=== PATIENT | female | born 1940 | race Caucasian/White ===

== ENCOUNTER 2017-09-29 18:33 | Inpatient (IN) | payer MEDICARE, BC ==
--- NOTE | 2017-09-29 19:18 | EDM.PDOC ---
ED HPI GENERAL MEDICAL PROBLEM - General Chief Complaint: Neurological Problem Stated Complaint: fall Time Seen by Provider: 09/29/17 18:59 Source of Information: Reports: Patient, Family (, son), RN Notes Reviewed History Limitations: Reports: No Limitations - History of Present Illness INITIAL COMMENTS - FREE TEXT/NARRATIVE: The patient states that she developed chills, a cough productive of clear sputum , sinus congestion with a headache, particularly involving her forehead, right eye, and right ear, this past 09/27/2017. She developed generalized weakness to the point that she was unable to walk yesterday, Tuesday, 2016, and even slid out of bed at one point, unable to get back in on her own. She told the triage nurse that she was dizzy, although when asked specifically, she denies being vertiginous or lightheaded. She suffers chronic urinary incontinence, but it has been worse since Tuesday or Tuesday of this week, 2016 or 09/27/2017. She denies dysuria, urinary urgency, and urinary frequency, however. She denies recent nausea, vomiting, constipation, or diarrhea. No recent dyspnea or palpitations. The patient was seen at the [facility] today, where a urine specimen was collected, however, the patient has not been given the results. The patient received an influenza vaccine in early July this season. The patient's PCP is Dr. Head. 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 2cups coffee a day. - Recreational Drug Use Recreational Drug Use: No ED ROS GENERAL - Review of Systems Review Of Systems: ROS reveals no pertinent complaints other than HPI. ED EXAM, GENERAL - Physical Exam Exam: See Below Exam Limited By: No Limitations General Appearance: Alert, WD/WN, No Apparent Distress Eye Exam: Bilateral Eye: Normal Inspection Ears: Normal External Exam, Normal Canal, Hearing Grossly Normal, Normal TMs Nose: Normal Inspection, Normal Mucosa, No Blood Throat/Mouth: Normal Inspection, Normal Lips, Normal Teeth, Normal Gums, Normal Oropharynx, Normal Voice, No Airway Compromise Head: Atraumatic, Normocephalic Neck: Normal Inspection, Non-Tender, Other (The patient is able to tilt her head to the left and right, forward and back, but states that she has been instructed to not turn her head to the left or right, following her cervical surgery). No: Lymphadenopathy (L), Lymphadenopathy (R) Respiratory/Chest: No Respiratory Distress, Lungs Clear, Normal Breath Sounds, No Accessory Muscle Use Cardiovascular: Normal Peripheral Pulses, Regular Rate, Rhythm, No Gallop, No JVD, No Murmur, No Rub Peripheral Pulses: 4+: Radial (L), Radial (R) GI/Abdominal: Normal Bowel Sounds, Soft, Non-Tender, No Organomegaly, No Distention, No Abnormal Bruit, No Mass (Female) Exam: Deferred Rectal (Female) Exam: Deferred Extremities: Normal Inspection, Normal Range of Motion, No Pedal Edema, Normal Capillary Refill Neurological: Alert, Oriented, Normal Cognition, Other (Generalized weakness, slightly more on the left than the right. The patient states that she has chronic left sided weakness, following her cervical surgery) Psychiatric: Normal Affect Skin Exam: Warm, Dry, Intact, Normal Color, No Rash EKG INTERPRETATION EKG Date: 09/29/17 Time: 18:55 Rhythm: NSR Rate (Beats/Min): 83 [place]: Normal P-Wave: Present QRS: Normal ST-T: Depressed (SLIGHT ST depression high lateral leads, otherwise, no ischemic changes) QT: Normal Comparison: NA - No Prior EKG Course - Vital Signs Last Recorded V/S: Last Vital Signs Temp 37.9 C 09/29/17 18:49 Pulse 87 09/29/17 18:49 Resp 20 09/29/17 18:49 BP 156/75 H 09/29/17 18:49 Pulse Ox 96 09/29/17 18:49 Orthostatic Blood Pressure [ 166/73 Standing] Orthostatic Blood Pressure [ 163/74 Sitting] Orthostatic Blood Pressure [ 158/59 Supine] - Orders/Labs/Meds Orders: Active Orders 24 hr Category Date Time Status EKG Documentation Completion [RC] STAT Care 09/29/17 19:12 Active Orthostatic Vital Signs [RC] STAT Care 09/29/17 19:11 Active Chest 1V Frontal [CR] Stat Exams 09/29/17 19:11 Taken CULTURE BLOOD [BC] Stat Lab 09/29/17 19:46 Received CULTURE BLOOD [BC] Stat Lab 09/29/17 20:20 Received Blood Culture x2 Reflex Set [OM.PC] Stat Oth 09/29/17 19:12 Ordered Labs: Laboratory Tests 09/29/17 09/29/17 09/29/17 Range/Units 18:53 19:25 20:20 WBC 6.80 (3.98-10.04) K/mm3 RBC 4.50 (3.98-5.22) M/mm3 Hgb 13.0 (11.2-15.7) gm/L Hct 40.2 (34.1-44.9) % MCV 89.3 (79.4-94.8) fl MCH 28.9 (25.6-32.2) pg MCHC 32.3 (32.2-35.5) g/dl RDW Std Deviation 48.1 H (36.4-46.3) fL Plt Count 209 (182-369) K/mm3 MPV 10.7 (9.4-12.3) fl Neutrophils % (Manual) 65 H (40-60) % Band Neutrophils % 0 (0-10) % Lymphocytes % (Manual) 30 (20-40) % Atypical Lymphs % 2 % Monocytes % (Manual) 3 (2-10) % Eosinophils % (Manual) 0 L (0.7-5.8) % Basophils % (Manual) 0 L (0.1-1.2) Platelet Estimate Adequate Plt Morphology Comment Normal Anisocytosis 1+ slight Microcytosis 1+ slight Macrocytosis 1+ slight RBC Morph Comment Abnormal Sodium 134 L (136-145) mEq/L Potassium 3.9 (3.5-5.1) mEq/L Chloride 98 (98-107) mEq/L Carbon Dioxide 25 (21-32) mEq/L Anion Gap 14.9 (5-15) BUN 14 (7-18) mg/dL Creatinine 0.7 (0.55-1.02) mg/dL Est Cr Clr Drug Dosing 49.88 mL/min Estimated GFR (MDRD) > 60 (>60) mL/min BUN/Creatinine Ratio 20.0 H (14-18) Glucose 113 (83-115) mg/dL Lactic Acid (0.4-2.0) mmol/L Calcium 8.9 (8.5-10.1) mg/dL Magnesium 1.8 (1.8-2.4) mg/dl Total Bilirubin 0.2 (0.2-1.0) mg/dL AST 38 H (15-37) U/L ALT 55 (14-59) U/L Alkaline Phosphatase 98 (46-116) U/L Troponin I < 0.017 (0.00-0.056) ng/mL Total Protein 7.9 (6.4-8.2) g/dl Albumin 3.2 L (3.4-5.0) g/dl Globulin 4.7 gm/dL Albumin/Globulin Ratio 0.7 L (1-2) TSH 3rd Generation 0.556 (0.358-3.74) uIU/mL Urine Color Yellow (Yellow) Urine Appearance Slt cloudy H (Clear) Urine pH 7.0 (5.0-8.0) Ur Specific [place] 1.025 (1.005-1.030) Urine Protein 2+ H (Negative) Urine Glucose (UA) Negative (Negative) Urine Ketones 2+ H (Negative) Urine Occult Blood 2+ H (Negative) Urine Nitrite Negative (Negative) Urine Bilirubin Negative (Negative) Urine Urobilinogen 0.2 (0.2-1.0) Ur Leukocyte Esterase Negative (Negative) Urine RBC 10-20 H (0-5) /hpf Urine WBC 0-5 (0-5) /hpf Ur Epithelial Cells 0-5 (0-5) /hpf Amorphous Sediment Moderate H (NOT SEEN) /hpf Urine Bacteria Few (FEW) /hpf Urine Mucus Moderate H (FEW) /hpf 09/29/17 Range/Units 20:20 WBC (3.98-10.04) K/mm3 RBC (3.98-5.22) M/mm3 Hgb (11.2-15.7) gm/L Hct (34.1-44.9) % MCV (79.4-94.8) fl MCH (25.6-32.2) pg MCHC (32.2-35.5) g/dl RDW Std Deviation (36.4-46.3) fL Plt Count (182-369) K/mm3 MPV (9.4-12.3) fl Neutrophils % (Manual) (40-60) % Band Neutrophils % (0-10) % Lymphocytes % (Manual) (20-40) % Atypical Lymphs % % Monocytes % (Manual) (2-10) % Eosinophils % (Manual) (0.7-5.8) % Basophils % (Manual) (0.1-1.2) Platelet Estimate Plt Morphology Comment Anisocytosis Microcytosis Macrocytosis RBC Morph Comment Sodium (136-145) mEq/L Potassium (3.5-5.1) mEq/L Chloride (98-107) mEq/L Carbon Dioxide (21-32) mEq/L Anion Gap (5-15) BUN (7-18) mg/dL Creatinine (0.55-1.02) mg/dL Est Cr Clr Drug Dosing mL/min Estimated GFR (MDRD) (>60) mL/min BUN/Creatinine Ratio (14-18) Glucose (83-115) mg/dL Lactic Acid 1.5 (0.4-2.0) mmol/L Calcium (8.5-10.1) mg/dL Magnesium (1.8-2.4) mg/dl Total Bilirubin (0.2-1.0) mg/dL AST (15-37) U/L ALT (14-59) U/L Alkaline Phosphatase (46-116) U/L Troponin I (0.00-0.056) ng/mL Total Protein (6.4-8.2) g/dl Albumin (3.4-5.0) g/dl Globulin gm/dL Albumin/Globulin Ratio (1-2) TSH 3rd Generation (0.358-3.74) uIU/mL Urine Color (Yellow) Urine Appearance (Clear) Urine pH (5.0-8.0) Ur Specific [place] (1.005-1.030) Urine Protein (Negative) Urine Glucose (UA) (Negative) Urine Ketones (Negative) Urine Occult Blood (Negative) Urine Nitrite (Negative) Urine Bilirubin (Negative) Urine Urobilinogen (0.2-1.0) Ur Leukocyte Esterase (Negative) Urine RBC (0-5) /hpf Urine WBC (0-5) /hpf Ur Epithelial Cells (0-5) /hpf Amorphous Sediment (NOT SEEN) /hpf Urine Bacteria (FEW) /hpf Urine Mucus (FEW) /hpf Meds: Medications Discontinued Medications Generic Name Dose Route Start Last Admin Trade Name Freq PRN Reason Stop Dose Admin Acetaminophen 650 mg 09/29/17 20:17 09/29/17 20:22 Tylenol PO 09/29/17 20:18 650 mg NOW ONE Administration - Re-Assessments/Exams Free Text/Narrative Re-Assessment/Exam: 09/29/17 19:38 Portable chest radiograph reviewed. Cardiac silhouette is within normal limits. No pulmonary vascular congestion. No pleural effusions. No focal infiltrate. No pneumothorax. There appears to be a large left before meals separation. Findings suspicious for bilateral rotator cuff injuries. No prior chest radiograph for comparison. Formal read per the Radiologist pending. 09/29/17 20:05 The patient is not orthostatic. Nurse Esperanza stated that a PT belt was required to hold the patient upright and prevent her from falling. 09/29/17 21:22 Test results discussed with the patient. Her and son have gone home. The patient is positive for influenza A. The remainder of her workup is unremarkable. Firstly, the patient's symptoms are at least 48 hours old, therefore Tamiflu would be of no benefit. The patient is requesting being admitted overnight due to generalized weakness, which seems reasonable to me. 09/29/17 21:[address] Eng at 21:32. He accepts the patient for admission to Med Surg. Departure - Departure Time of Disposition: 21:25 Disposition: Refer to Observation Condition: Good Clinical Impression: Influenza A, Generalized weakness - Discharge Information - My Orders Last 24 Hours: My Active Orders 09/29/17 19:11 Orthostatic Vital Signs [RC] STAT Chest 1V Frontal [CR] Stat 09/29/17 19:12 EKG Documentation Completion [RC] STAT Blood Culture x2 Reflex Set [OM.PC] Stat 09/29/17 19:46 CULTURE BLOOD [BC] Stat 09/29/17 20:20 CULTURE BLOOD [BC] Stat - Assessment/Plan Last 24 Hours: My Active Orders 09/29/17 19:11 Orthostatic Vital Signs [RC] STAT Chest 1V Frontal [CR] Stat 09/29/17 19:12 EKG Documentation Completion [RC] STAT Blood Culture x2 Reflex Set [OM.PC] Stat 09/29/17 19:46 CULTURE BLOOD [BC] Stat 09/29/17 20:20 CULTURE BLOOD [BC] Stat
[2017-09-29] MEDS ORDERED: Acetaminophen 325 MG Tab PO ONE (20:17)
[2017-09-29] MEDS ORDERED: Magnesium Sulfate/Water 2 GM in Premix Bag 1 BAG IV ONE (23:00)
[2017-09-29] MEDS ORDERED: Bisacodyl 5 MG Tab PO PRN (23:21)
[2017-09-29] MEDS ORDERED: Docusate Sodium 100 MG Cap PO PRN (23:21)
[2017-09-29] MEDS ORDERED: Temazepam 7.5 MG Cap PO PRN (23:21)
[2017-09-29] MEDS ORDERED: Ondansetron 4 MG/2 ML SDV IV PRN (23:21)
[2017-09-29] MEDS ORDERED: Albuterol/Ipratropium 3.0-0.5 MG/3 ML Neb Soln NEB PRN (23:21)
[2017-09-29] MEDS ORDERED: Ondansetron 4 MG Tab.DIS PO PRN (23:21)
[2017-09-29] MEDS ORDERED: Acetaminophen 325 MG Tab PO PRN (23:21)
[2017-09-29] MEDS ORDERED: Polyethylene Glycol 3350 Powder 17 GM Packet PO PRN (23:21)
[2017-09-29] MEDS ORDERED: Acetaminophen/HYDROcodone 325-5 MG Tab PO PRN (23:21)
[2017-09-29] MEDS ORDERED: Metoprolol Tartrate 5 MG/5 ML SDV IVPUSH PRN (23:29)
[2017-09-29] MEDS ORDERED: hydrALAZINE 20 MG/ML SDV IVPUSH PRN (23:29)
[2017-09-29] MEDS ORDERED: Sodium Chloride 0.9% 1,000 ML IV SCH (23:30)
--- NOTE | 2017-09-29 23:42 | PCM.HP ---
H&P History of Present Illness - General Date of Service: 09/29/17 Admit Problem/Dx: Admission Diagnosis/Problem Admission Diagnosis/Problem Influenza Source of Information: Patient, Old Records, Provider, RN, RN Notes Reviewed History Limitations: Reports: No Limitations - History of Present Illness Initial Comments - Free Text/Narative: Rosibel Rodriguez is a 77 yo female who presents to our ED D today with chills, sinus congestion, headache, and a productive cough of clear sputum for the past few days. She reports the headache particularly involves her forehead, right eye and right ear. Yesterday she developed generalized weakness point that she was unable to walk. She states even slowed benefit at one point and was able to get back and on her own. She does have some baseline weakness from a prior spinal cyst, however she states has been much worse the last couple of days. She does have chronic urinary incontinence however it has been worse since Tuesday or Tuesday of this week. She denies any dysuria or urgency. She does report that she has had urinating more frequently this past week as well. Denies any nausea, vomiting, constipation, diarrhea. She reports she is chronically short of breath however, she has been worse last couple of days. She denies any chest pain or palpitations. She reportedly was seen at [facility] today and the urine specimen was collected. She was not given results of this UA. She reports she was told she has a cold. She states a influence screen was never done. She does report having received influenza vaccine in July this year. In the ED a 12-lead EKG was obtained showing a normal sinus rhythm at [address] was slight [address] depression in the high lateral leads but no ischemic changes. There is no prior 12-lead for comparison. This was interpreted by the ED provider. Temp was afebrile at 37.9C. Pulse was 87. Respirations 20. Blood pressure 156/75. Pulse ox 96. Static blood pressures were obtained and standing she was 166/73, sitting 163/74, supine 158/59. Blood cultures were obtained. Labs were obtained: WBC was normal at 6.8. Hemoglobin normal at 13.0. Hematocrit normal at 40.2. She was normocytic. Was were normal at 209,000. Neutrophils were elevated 65%. There is no bandemia. Sodium was slightly low at 134. Potassium good at 3.9. Chloride 98. Carbon dioxide 25. Anion gap 15.9. BUN 14. Creatinine 0.7. EGFR greater than 60. Glucose 113. Gastric acid 1.5. Calcium 8.9. Magnesium 1.8. Total bilirubin was 0.2. Liver enzymes looked good with AST at 38, ALT at 55, alkaline phosphatase and 98. Troponin was negative at less than 0.017. Was low at 3.2. TSH was normal at 0.556. UA was negative however 2+ protein, 2+ ketones, 2+ acute blood, 10- 20 RBC, moderate amorphous sediment, and moderate urine mucus were noted. She is given 650 mg Tylenol. Portable chest x-ray was obtained and interpreted by the ED provider as cardiac silhouette within normal limits. No pulmonary vascular congestion. No pleural effusions. No focal infiltrate. No pneumothorax. Possible suspicious bilateral rotator cuff injuries. Formal radiologist read is pending. The patient was very weak and nursing was required to assist her in getting in and out of bed. She was unable stand by herself. Influenza screen was obtained and she was found to be positive for influenza A. Symptoms are greater than 48 hours old and Tamiflu was not given, as she is outside of the window. She carries a history of HLD, HTN, spinal cyst with drainage, and psoriasis. She was never a smoker. She is subsequently admitted to the medical floor. CODE STATUS is DNR/DNI. Her PCP is Dr. oliver at [facility] in [place]. Headache Pain Score (Numeric/FACES): 3 - Related Data Allergies/Adverse Reactions: Allergies Allergy/AdvReac Type Severity Reaction Status Date / Time No Known Allergies Allergy Verified 09/29/17 18:48 Home Medications: Home Meds Bisoprolol Fumarate/HCTZ [Ziac 2.5-6.25 MG] 0.5 tab PO BID 10/17/16 [History] Past Medical History HEENT History: Reports: Impaired Vision Other HEENT History: glasses Cardiovascular History: Reports: High Cholesterol, Hypertension Gastrointestinal History: Reports: None HOME HEALTH CARE RESPIRATORY THERAPIST History: Reports: Other OB/BYN History: x4 Musculoskeletal History: Reports: Other (See Below) Other Musculoskeletal History: spinal cyst with drainage Dermatologic History: Reports: Psoriasis - Past Surgical History GI Surgical History: Reports: Appendectomy Female Surgical History: Reports: Hysterectomy Social & Family History - Family History Family Medical History: Noncontributory - Tobacco Use Smoking Status *Q: Never Smoker Second Hand Smoke Exposure: No - Caffeine Use Caffeine Use: Reports: Coffee, Soda Other Caffeine Use: shares with her so 1/2 can per day of soda. 2cups coffee a day. - Recreational Drug Use Recreational Drug Use: No H&P Review of Systems - Review of Systems: Review Of Systems: See Below General: Reports: Chills, Malaise, Weakness, Fatigue, Decreased Appetite. Denies: Fever, Diaphoresis HEENT: Reports: Headaches. Denies: Ear Pain, Eye Pain, Hearing Changes, Rhinitis, Sinus Congestion, Sore Throat, Visual Changes Pulmonary: Reports: Shortness of Breath (chronically but worse now ), Cough, Sputum. Denies: Wheezing, Pleuritic Chest Pain, Hemoptysis Cardiovascular: Reports: Dyspnea on Exertion (chronically ), Edema (ocasionally in right leg - none now), Blood Pressure Problem. Denies: Chest Pain, Palpitations, Orthopnea, PND, Lightheadedness, Syncope Gastrointestinal: Reports: Decreased Appetite. Denies: Abdominal Pain, Anorexia , Black Stool, Bloody Stool, Constipation, Diarrhea, Difficulty Swallowing, Nausea, Stool Incontinence, Vomiting Genitourinary: Reports: Frequency, Incontinence. Denies: Dysuria, Burning, Pain , Urgency Musculoskeletal: Reports: Neck Pain (Chronic ). Denies: Shoulder Pain, Arm Pain , Back Pain, Hand Pain, Leg Pain, Foot Pain, Joint Pain Skin: Reports: Other (Scattered psoriasis - worse on back and legs ). Denies: Jaundice, Diaphoresis, Pruritis, Erythema, Wound Psychiatric: Reports: No Symptoms. Denies: Confusion, Depression, Mood Lability , Anxiety Neurological: Reports: Headache, Pre-Existing Deficit (left sided weakness chronically from prior spinal cyst ), Difficulty Walking, Weakness, Gait Disturbance. Denies: Confusion, Dizziness, Numbness, Paresthesia, Syncope, Tingling, Tremors, Trouble Speaking Hematologic/Lymphatic: Reports: No Symptoms Immunologic: Reports: No Symptoms Exam - Exam Exam: See Below - Vital Signs Vital Signs: Last Vital Signs Temp 100.2 F 09/29/17 18:49 Pulse 87 09/29/17 18:49 Resp 20 09/29/17 18:49 BP 156/75 H 09/29/17 18:49 Pulse Ox 96 09/29/17 18:49 Weight: 130 lb - Exam Quality Assessment: DVT Prophylaxis. No: Supplemental Oxygen General: Alert, Oriented, Cooperative. No: Mild Distress HEENT: Conjunctiva Clear, EACs Clear, EOMI, Hearing Intact, Mucosa Moist & [place] , Nares Patent, Normal Nasal Septum, Posterior Pharynx Clear, PERRLA Neck: Supple, Trachea Midline, Other (Turns head up and down. We're poorly told by neurosurgeon not to turn head left or right. ). No: JVD, Thyromegaly Lungs: Clear to Auscultation, Normal Respiratory Effort. No: Crackles, Rales, Rhonchi, Rub, Stridor, Wheezing Cardiovascular: Regular Rate, Regular Rhythm, Normal S1, Normal S2 GI/Abdominal Exam: Soft, Non-Tender, No Organomegaly, No Distention, No Abnormal Bruit, No Mass, Pelvis Stable, Abnormal Bowel Sounds (hyperactive ) (Female) Exam: Deferred Rectal (Female) Exam: Deferred Back Exam: Normal Inspection, Full Range of Motion, Other. No: CVA Tenderness ( L), CVA Tenderness (R) Extremities: Normal Inspection, Normal Range of Motion, No Pedal Edema, Normal Capillary Refill Peripheral Pulses: 2+: Radial (L), Radial (R), Posterior Tibial (L), Posterior Tibial (R), Dorsalis Pedis (L), Dorsalis Pedis (R) Skin: Warm, Dry, Intact, Other (Scattered psoriasis, worse on back and legs.) Neurological: Cranial Nerves Intact (Grossly), Other. No: Strength Equal Bilateral (Left weaker than right - this is her baseline ) Neuro Extensive - Mental Status: Alert, Oriented x3, Normal Mood/Affect, Normal Cognition, Memory Intact Neuro Extensive - Motor, Sensory, Reflexes: CN II-XII Intact (Grossly), Abnormal Gait Psychiatric: Alert, Normal Affect, Normal Mood - Patient Data Result Diagrams: 09/29/17 18:53 09/29/17 20:20 *Q Meaningful Use (ADM) - VTE *Q VTE Criteria *Q: - Stroke *Q Stroke Criteria *Q: - AMI *Q AMI Criteria *Q: - Problem List (1) Generalized weakness SNOMED Code(s): 64027499 ICD Code: R53.1 - WEAKNESS Status: Acute Priority: High Current Visit: Yes (2) Influenza A SNOMED Code(s): 869995247 ICD Code: J10.1 - FLU DUE TO OTH IDENT INFLUENZA VIRUS W OTH RESP MANIFEST Status: Acute Priority: High Current Visit: Yes (3) Headache SNOMED Code(s): 52943698 ICD Code: R51 - HEADACHE Status: Acute Priority: Medium Current Visit: Yes Qualifiers: Headache type: tension-type Headache chronicity pattern: acute headache Intractability: not intractable Qualified Code(s): G44.209 - Tension-type headache, unspecified, not intractable Problem List Initiated/Reviewed/Updated: Yes Orders Last 24hrs: Active Orders 24 hr Category Date Time Status Admission Status [Patient Status] [ADT] Routine ADT 09/29/17 22:50 Active Ambulate [RC] PER UNIT ROUTINE Care 09/29/17 23:24 Active Antiembolic Devices [RC] PER UNIT ROUTINE Care 09/29/17 23:25 Active Height and Weight [RC] DAILY Care 09/29/17 23:21 Active Intake and Output [RC] QSHIFT Care 09/29/17 23:23 Active Oxygen Therapy [RC] PRN Care 09/29/17 23:21 Active Pulse Oximetry [RC] PRN Care 09/29/17 23:24 Active RT Aerosol Therapy [RC] ASDIRECTED Care 09/29/17 23:26 Active Up With Assistance [RC] ASDIRECTED Care 09/29/17 23:21 Active VTE/DVT Education [RC] PER UNIT ROUTINE Care 09/29/17 23:21 Active Vital Signs [RC] Q4H Care 09/29/17 23:21 Active Consult to Case Management [CONS] Routine Cons 09/29/17 23:21 Active Consult to Substance Abuse Services Director [CONS] Routine Cons 09/29/17 23:21 Active Consult to Spiritual Care [CONS] Routine Cons 09/29/17 23:21 Active OT Evaluation and Treatment [CONS] Routine Cons 09/29/17 23:21 Active PT Evaluation and Treatment [CONS] Routine Cons 09/29/17 23:21 Active Heart Healthy Diet [DIET] Diet 09/29/17 Dinner Active CXR [Chest 2V] [CR] Routine Exams 09/30/17 08:00 Stop Req BASIC METABOLIC PANEL,BMP [CHEM] AM Lab 09/30/17 05:11 Ordered BASIC METABOLIC PANEL,BMP [CHEM] AM Lab 10/01/17 05:11 Ordered BASIC METABOLIC PANEL,BMP [CHEM] AM Lab 10/02/17 05:11 Ordered BASIC METABOLIC PANEL,BMP [CHEM] AM Lab 10/03/17 05:11 Ordered CBC WITH AUTO DIFF [HEME] AM Lab 09/30/17 05:11 Ordered CBC WITH AUTO DIFF [HEME] AM Lab 10/01/17 05:11 Ordered CBC WITH AUTO DIFF [HEME] AM Lab 10/02/17 05:11 Ordered CBC WITH AUTO DIFF [HEME] AM Lab 10/03/17 05:11 Ordered CRP [C-REACTIVE PROTEIN] [CHEM] AM Lab 09/30/17 05:11 Ordered CRP [C-REACTIVE PROTEIN] [CHEM] AM Lab 10/01/17 05:11 Ordered CRP [C-REACTIVE PROTEIN] [CHEM] AM Lab 10/02/17 05:11 Ordered CRP [C-REACTIVE PROTEIN] [CHEM] AM Lab 10/03/17 05:11 Ordered MAGNESIUM [CHEM] AM Lab 09/30/17 05:11 Ordered MAGNESIUM [CHEM] AM Lab 10/01/17 05:11 Ordered MAGNESIUM [CHEM] AM Lab 10/02/17 05:11 Ordered MAGNESIUM [CHEM] AM Lab 10/03/17 05:11 Ordered Acetaminophen [Tylenol] Med 09/29/17 23:21 Ordered 650 mg PO Q4H PRN Acetaminophen/HYDROcodone [[place] 325-5 MG] Med 09/29/17 23:21 Ordered 1 tab PO Q4H PRN Albuterol/Ipratropium [DuoNeb 3.0-0.5 MG/3 ML] Med 09/29/17 23:21 Ordered 3 ml NEB Q4H PRN Bisacodyl [Dulcolax] Med 09/29/17 23:21 Ordered 5 mg PO DAILY PRN Docusate Sodium [Colace] Med 09/29/17 23:21 Ordered 100 mg PO BID PRN Docusate Sodium/Sennosides [Senna Plus] Med 09/29/17 23:21 Ordered 1 tab PO BID PRN Enoxaparin [Lovenox] Med 09/30/17 09:00 Ordered 30 mg SUBCUT DAILY Magnesium Rep Pharmacy to Dose [Pharmacy to Dose - Med 09/29/17 23:29 Ordered Magnesium Replacement] 1 dose .XX ASDIRECTED PRN Metoprolol Tartrate [Lopressor] Med 09/29/17 23:29 Ordered 5 mg IVPUSH Q4H PRN Ondansetron [Zofran ODT] Med 09/29/17 23:21 Ordered 4 mg PO Q6H PRN Ondansetron [Zofran] Med 09/29/17 23:21 Ordered 4 mg IV Q6H PRN Polyethylene Glycol 3350 [MiraLAX] Med 09/29/17 23:21 Ordered 17 gm PO DAILY PRN Potassium Rep Pharmacy to Dose [Pharmacy to Dose - Med 09/29/17 23:29 Ordered Potassium Replacement] 1 dose .XX ASDIRECTED PRN Sodium Chloride 0.9% [Normal Saline] 1,000 ml Med 09/29/17 23:30 Ordered IV ASDIRECTED Temazepam [Restoril] Med 09/29/17 23:21 Ordered 7.5 mg PO BEDTIME PRN hydrALAZINE [Apresoline] Med 09/29/17 23:29 Ordered 10 mg IVPUSH Q6H PRN Antiembolic Hose [OM.PC] Per Unit Routine Oth 09/29/17 23:24 Ordered Precautions [COMM] Routine Oth 09/29/17 23:29 Ordered Resuscitation Status Routine Resus Stat 09/29/17 23:21 Ordered Medication Orders Acetaminophen (Tylenol) 650 mg PO Q4H PRN PRN Reason: Pain (Mild 1-3)/fever Hydrocodone Bitart/Acetaminophen ([place] 325-5 Mg) 1 tab PO Q4H PRN PRN Reason: Pain (moderate 4-6) Albuterol/Ipratropium (Duoneb 3.0-0.5 Mg/3 Ml) 3 ml NEB Q4H PRN PRN Reason: Shortness Of Breath/wheezing Bisacodyl (Dulcolax) 5 mg PO DAILY PRN PRN Reason: Constipation Docusate Sodium (Colace) 100 mg PO BID PRN PRN Reason: Constipation Enoxaparin Sodium (Lovenox) 30 mg SUBCUT DAILY CAROLIN Hydralazine HCl (Apresoline) 10 mg IVPUSH Q6H PRN PRN Reason: Hypertension Sodium Chloride (Normal Saline) 1,000 mls @ 75 mls/hr IV ASDIRECTED CAROLIN Stop: 09/30/17 12:49 Magnesium Sulfate (Pharmacy To Dose - Magnesium Replacement) 1 dose .XX ASDIRECTED PRN PRN Reason: RX TO WATCH MAG LEVELS Metoprolol Tartrate (Lopressor) 5 mg IVPUSH Q4H PRN PRN Reason: Tachycardia Ondansetron HCl (Zofran Odt) 4 mg PO Q6H PRN PRN Reason: nausea, able to take PO Ondansetron HCl (Zofran) 4 mg IV Q6H PRN PRN Reason: Nausea/Vomiting Polyethylene Glycol (Miralax) 17 gm PO DAILY PRN PRN Reason: Constipation Potassium Chloride (Pharmacy To Dose - Potassium Replacement) 1 dose .XX ASDIRECTED PRN PRN Reason: RX TO WATCH K LEVELS Senna/Docusate Sodium (Senna Plus) 1 tab PO BID PRN PRN Reason: Constipation Temazepam (Restoril) 7.5 mg PO BEDTIME PRN PRN Reason: Sleep Assessment/Plan Comment:: I/P Acute: Influenza -Positive for influenza A on screen -CXR negative for acute findings, pending formal radiologist read -Afebrile but chilled -Reports left sided weakness at baseline due to spinal spinal cyst and surgery, but much worse now -Unable to ambulate on own - attempted to get out of bed at home and fell; was unable to get back into bed on own -Symptoms >48 hours - outside window for Tamiflu -Supportive care -IV fluids as ordered -PT/OT -Discussed possible need for SNF rehab stay in ED -WBC 6.80 -CRP ordered -Lactic acid 1.5 -Does have productive cough - will order sputum culture -Blood cultures obtained in ED - pending -PT/OT Generalized weakness -2/2 above -See above Headache -Pain medications as needed -Improved from ER -Monitor Chronic: HLD HTN - stable 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 Head at [facility] here in [place].
--- NOTE | 2017-09-30 07:56 | PCM.PN ---
- General Info Date of Service: 09/30/17 Admission Dx/Problem (Free Text): Admission Diagnosis/Problem Admission Diagnosis/Problem Influenza Subjective Update: In to see Rosibel today. She is sitting in her chair. She reports she feels much better today. She has had a BM which she describes as slightly loose. She does still have a cough. She reports some chest pain while coughing. Overall she looks much better. She reports the weakness has improved greatly. Functional Status: Reports: Pain Controlled, Tolerating Diet, Ambulating, Urinating. Denies: New Symptoms - Review of Systems General: Reports: Weakness (improved ), Fatigue (improved ), Malaise (improved ) , Appetite HEENT: Reports: No Symptoms. Denies: Dysphasia, Eye Pain, Headaches, Post Nasal Drip, Sore Throat Pulmonary: Reports: Shortness of Breath (Improved ), Pleuritic Chest Pain (when coughing ), Cough. Denies: Sputum, Wheezing Cardiovascular: Reports: Dyspnea on Exertion (acute on chronic but improved ). Denies: Chest Pain, Palpitations, PND, Edema, Lightheadedness Gastrointestinal: Reports: No Symptoms. Denies: Abdominal Pain, Constipation, Decreased Appetite, Diarrhea, Nausea, Vomiting Genitourinary: Reports: No Symptoms. Denies: Dysuria, Frequency, Burning, Pain , Urgency Musculoskeletal: Reports: Neck Pain (Chronic ). 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 At baseline.). Denies: Cyanosis, Jaundice, Mottled, Pallor, Diaphoresis Neurological: Reports: Pre-Existing Deficit (left sided weakness ), Difficulty Walking, Gait Disturbance. Denies: Confusion, Dizziness, Headache, Numbness, Tingling, Trouble Speaking Psychiatric: Reports: No Symptoms - Patient Data Vitals - Most Recent: Last Vital Signs Temp 97.9 F 09/29/17 23:20 Pulse 72 09/29/17 23:20 Resp 22 H 09/29/17 23:20 BP 104/69 09/29/17 23:20 Pulse Ox 93 L 09/29/17 23:20 Weight - Most Recent: 132 lb 3.2 oz I&O - Last 24 Hours: Intake & Output 09/29/17 09/30/17 09/30/17 22:59 06:59 14:59 Output Total 500 Balance -500 Lab Results Last 24 Hours: Laboratory Results - last 24 hr 09/30/17 09/30/17 Range/Units 05:40 05:40 WBC 7.23 (3.98-10.04) K/mm3 RBC 4.05 (3.98-5.22) M/mm3 Hgb 12.1 (11.2-15.7) gm/L Hct 36.1 (34.1-44.9) % MCV 89.1 (79.4-94.8) fl MCH 29.9 (25.6-32.2) pg MCHC 33.5 (32.2-35.5) g/dl RDW Std Deviation 48.2 H (36.4-46.3) fL Plt Count 180 L (182-369) K/mm3 MPV 10.9 (9.4-12.3) fl Neut % (Auto) 50.2 (34.0-71.1) % Lymph % (Auto) 27.4 (19.3-51.7) % [place] % (Auto) 21.3 H (4.7-12.5) % Eos % (Auto) 0.3 L (0.7-5.8) Baso % (Auto) 0.4 (0.1-1.2) % Neut # (Auto) 3.63 (1.56-6.13) K/mm3 Lymph # (Auto) 1.98 (1.18-3.74) K/mm3 [place] # (Auto) 1.54 H (0.24-0.36) K/mm3 Eos # (Auto) 0.02 L (0.04-0.36) K/mm3 Baso # (Auto) 0.03 (0.01-0.08) K/mm3 Sodium 136 (136-145) mEq/L Potassium 3.7 (3.5-5.1) mEq/L Chloride 100 (98-107) mEq/L Carbon Dioxide 26 (21-32) mEq/L Anion Gap 13.7 (5-15) BUN 13 (7-18) mg/dL Creatinine 0.6 (0.55-1.02) mg/dL Est Cr Clr Drug Dosing 61.13 mL/min Estimated GFR (MDRD) > 60 (>60) mL/min BUN/Creatinine Ratio 21.7 H (14-18) Glucose 83 (83-115) mg/dL Calcium 8.2 L (8.5-10.1) mg/dL Magnesium 2.4 (1.8-2.4) mg/dl C-Reactive Protein 7.0 H* (<1.0) mg/dL Med Orders - Current: Current Medications Acetaminophen (Tylenol) 650 mg PO Q4H PRN PRN Reason: Pain (Mild 1-3)/fever Hydrocodone Bitart/Acetaminophen ([place] 325-5 Mg) 1 tab PO Q4H PRN PRN Reason: Pain (moderate 4-6) Albuterol/Ipratropium (Duoneb 3.0-0.5 Mg/3 Ml) 3 ml NEB Q4H PRN PRN Reason: Shortness Of Breath/wheezing Bisacodyl (Dulcolax) 5 mg PO DAILY PRN PRN Reason: Constipation Docusate Sodium (Colace) 100 mg PO BID PRN PRN Reason: Constipation Enoxaparin Sodium (Lovenox) 40 mg SUBCUT DAILY [facility] Hydralazine HCl (Apresoline) 10 mg IVPUSH Q6H PRN PRN Reason: Hypertension Sodium Chloride (Normal Saline) 1,000 mls @ 75 mls/hr IV ASDIRECTED CAROLIN Stop: 09/30/17 12:49 Last Admin: 09/30/17 00:42 Dose: 75 mls/hr Magnesium Sulfate (Pharmacy To Dose - Magnesium Replacement) 0 dose .XX ASDIRECTED PRN PRN Reason: RX TO WATCH MAG LEVELS Metoprolol Tartrate (Lopressor) 5 mg IVPUSH Q4H PRN PRN Reason: Tachycardia Non-Formulary Medication (Bisoprolol Fumarate/Hctz) 0.5 tab PO BID [facility] Ondansetron HCl (Zofran Odt) 4 mg PO Q6H PRN PRN Reason: nausea, able to take PO Ondansetron HCl (Zofran) 4 mg IV Q6H PRN PRN Reason: Nausea/Vomiting Polyethylene Glycol (Miralax) 17 gm PO DAILY PRN PRN Reason: Constipation Potassium Chloride (Pharmacy To Dose - Potassium Replacement) 1 dose .XX ASDIRECTED PRN PRN Reason: RX TO WATCH K LEVELS Senna/Docusate Sodium (Senna Plus) 1 tab PO BID PRN PRN Reason: Constipation Temazepam (Restoril) 7.5 mg PO BEDTIME PRN PRN Reason: Sleep Discontinued Medications Acetaminophen (Tylenol) 650 mg PO NOW ONE Stop: 09/29/17 20:18 Last Admin: 09/29/17 20:22 Dose: 650 mg Magnesium Sulfate 2 gm/ Premix 50 mls @ 50 mls/hr IV ONETIME ONE Stop: 09/29/17 23:59 Last Admin: 09/30/17 00:42 Dose: 50 mls/hr - Exam Quality Assessment: DVT Prophylaxis General: Alert, Oriented, Cooperative, No Acute Distress HEENT: Pupils Equal, Pupils Reactive, EOMI, Mucous Membr. Moist/[place] Neck: Supple, Trachea Midline, No JVD, No Thyromegaly Lungs: Clear to Auscultation, Normal Respiratory Effort. No: Crackles, Rales, Rhonchi, Rub, Stridor, Wheezing Cardiovascular: Regular Rate, Regular Rhythm, No Murmurs GI/Abdominal Exam: Normal Bowel Sounds, Soft, Non-Tender, No Organomegaly, No Distention, No Abnormal Bruit, No Mass, Pelvis Stable (Female) Exam: Deferred Back Exam: Full Range of Motion, Other (Scattered psoriasis) Extremities: Normal Range of Motion, Non-Tender, No Pedal Edema, Normal Capillary Refill, Other (Scattered psoriasis) Peripheral Pulses: 3+: Radial (L), Radial (R), Posterior Tibial (L), Posterior Tibial (R), Dorsalis Pedis (L), Dorsalis Pedis (R) Skin: Warm, Dry, Intact Neurological: No New Focal Deficit Psy/Mental Status: Alert, Normal Affect, Normal Mood - Problem List & Annotations (1) Generalized weakness SNOMED Code(s): 89227902 Code(s): R53.1 - WEAKNESS Status: Acute Priority: High Current Visit: Yes (2) Influenza A SNOMED Code(s): 461087248 Code(s): J10.1 - FLU DUE TO OTH IDENT INFLUENZA VIRUS W OTH RESP MANIFEST Status: Acute Priority: High Current Visit: Yes (3) Headache SNOMED Code(s): 59136520 Code(s): R51 - HEADACHE Status: Resolved Priority: Medium Current Visit : Yes Qualifiers: Headache type: tension-type Headache chronicity pattern: acute headache Intractability: not intractable Qualified Code(s): G44.209 - Tension-type headache, unspecified, not intractable - Problem List Review Problem List Initiated/Reviewed/Updated: Yes - My Orders Last 24 Hours: My Active Orders 09/29/17 23:21 Height and Weight [RC] 04 Oxygen Therapy [RC] PRN Up With Assistance [RC] BID VTE/DVT Education [RC] DAILY Vital Signs [RC] Q4HR Consult to Case Management [CONS] Routine Consult to [employer] Operator [CONS] Routine Consult to Spiritual Care [CONS] Routine OT Evaluation and Treatment [CONS] Routine PT Evaluation and Treatment [CONS] Routine Acetaminophen [Tylenol] 650 mg PO Q4H PRN Acetaminophen/HYDROcodone [[place] 325-5 MG] 1 tab PO Q4H PRN Albuterol/Ipratropium [DuoNeb 3.0-0.5 MG/3 ML] 3 ml NEB Q4H PRN Bisacodyl [Dulcolax] 5 mg PO DAILY PRN Docusate Sodium [Colace] 100 mg PO BID PRN Docusate Sodium/Sennosides [Senna Plus] 1 tab PO BID PRN Ondansetron [Zofran ODT] 4 mg PO Q6H PRN Ondansetron [Zofran] 4 mg IV Q6H PRN Polyethylene Glycol 3350 [MiraLAX] 17 gm PO DAILY PRN Temazepam [Restoril] 7.5 mg PO BEDTIME PRN Resuscitation Status Routine 09/29/17 23:23 Intake and Output [RC] 04,16 09/29/17 23:24 Ambulate [RC] 10,14,18 Antiembolic Hose [OM.PC] Per Unit Routine 09/29/17 23:25 Antiembolic Devices [RC] BID 09/29/17 23:26 RT Aerosol Therapy [RC] ASDIRECTED 09/29/17 23:29 Magnesium Rep Pharmacy to Dose [Pharmacy to Dose - Magnesium Replacement] 0 dose .XX ASDIRECTED PRN Metoprolol Tartrate [Lopressor] 5 mg IVPUSH Q4H PRN Potassium Rep Pharmacy to Dose [Pharmacy to Dose - Potassium Replacement] 1 dose .XX ASDIRECTED PRN hydrALAZINE [Apresoline] 10 mg IVPUSH Q6H PRN Precautions [COMM] Routine 09/29/17 23:30 Sodium Chloride 0.9% [Normal Saline] 1,000 ml IV ASDIRECTED 09/29/17 Dinner Heart Healthy Diet [DIET] 09/30/17 00:17 CULTURE SPUTUM + SMEAR [RM] Routine 09/30/17 05:40 CBC WITH AUTO DIFF [HEME] AM 09/30/17 09:00 Bisoprolol Fumarate/HCTZ 0.5 tab PO BID Enoxaparin [Lovenox] 40 mg SUBCUT DAILY 10/01/17 05:11 BASIC METABOLIC PANEL,BMP [CHEM] AM CBC WITH AUTO DIFF [HEME] AM CRP [C-REACTIVE PROTEIN] [CHEM] AM MAGNESIUM [CHEM] AM 10/02/17 05:11 BASIC METABOLIC PANEL,BMP [CHEM] AM CBC WITH AUTO DIFF [HEME] AM CRP [C-REACTIVE PROTEIN] [CHEM] AM MAGNESIUM [CHEM] AM 10/03/17 05:11 BASIC METABOLIC PANEL,BMP [CHEM] AM CBC WITH AUTO DIFF [HEME] AM CRP [C-REACTIVE PROTEIN] [CHEM] AM MAGNESIUM [CHEM] AM - Plan Plan:: I/P Acute: Influenza -Positive for influenza A on screen -CXR negative for acute findings -Afebrile but chilled -Reports left sided weakness at baseline due to spinal spinal cyst and surgery, but much worse now - improving -Unable to ambulate on own - attempted to get out of bed at home and fell; was unable to get back into bed on own at admission -improving -Symptoms >48 hours - outside window for Tamiflu -Supportive care -IV fluids as ordered - hold for now -PT/OT -Discussed possible need for SNF rehab stay in ED - refusing now -WBC 6.80-->7.23 -CRP 7.0 -Lactic acid 1.5 -Does have productive cough - will order sputum culture -Blood cultures obtained in ED - pending Generalized weakness, improved -2/2 above -See above Resolved Headache -Pain medications as needed -Fioricet -Improved from ER -Monitor Chronic: HLD HTN - stable 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 Head at [facility] here in [place].
--- NOTE | 2017-09-30 08:15 | CR ---
Chest: Portable view of the chest was obtained. Comparison: No prior chest x-ray. Heart size is normal. Mild tortuosity of the thoracic aorta is seen. Lungs are clear. Minimal degenerative spurring is partially visualized within the spine with slight scoliosis. Previous resection of the distal left clavicle is noted. Impression: 1. Incidental findings. Nothing acute is identified on portable chest x-ray. Diagnostic code #2
[2017-09-30] MEDS ORDERED: Ibuprofen 600 MG Tab PO PRN (08:17)
[2017-09-30] MEDS: Enoxaparin 40 MG/0.4 ML Syringe SUBCUT SCH (09:15)
[2017-09-30] MEDS: Potassium Chloride 20 MEQ Tab.ER PO SCH ×2 (09:18→14:54)
[2017-09-30] MEDS ORDERED: Potassium Chloride 20 MEQ Tab.ER PO SCH (09:30)
[2017-09-30] MEDS ORDERED: Acetaminophen/Butalbital/Caffeine 325-50-40 MG Tab PO ONE (10:55)
[2017-09-30] MEDS ORDERED: Sodium Chloride 0.9% 1,000 ML IV SCH (14:30)
[2017-09-30] MEDS: BISOPROLOL FUMARATE PO SCH (21:13)
[2017-09-30] MEDS: HCTZ PO SCH (21:13)
--- NOTE | 2017-10-01 06:50 | PCM.PN ---
- General Info Date of Service: 10/01/17 Admission Dx/Problem (Free Text): Admission Diagnosis/Problem Admission Diagnosis/Problem Influenza Subjective Update: In to see Rosibel today. She is sitting in her chair. She reports she feels much better today. She has had a BM which she describes as slightly loose. She does still have a cough. She reports some chest pain while coughing. Overall she looks much better. She reports the weakness has improved greatly. Functional Status: Reports: Pain Controlled, Tolerating Diet, Ambulating, Urinating. Denies: New Symptoms - Patient Data Vitals - Most Recent: Last Vital Signs Temp 36.9 C 10/01/17 03:40 Pulse 62 10/01/17 03:40 Resp 18 10/01/17 03:40 BP 137/71 10/01/17 03:40 Pulse Ox 98 10/01/17 03:40 Weight - Most Recent: 61.19 kg I&O - Last 24 Hours: Intake & Output 09/30/17 09/30/17 10/01/17 14:59 22:59 06:59 Intake Total 1215 700 Output Total 250 1500 Balance 965 -800 Lab Results Last 24 Hours: Laboratory Results - last 24 hr 09/30/17 09/30/17 10/01/17 Range/Units 05:40 05:40 05:52 WBC 3.87 L (3.98-10.04) K/mm3 RBC 3.84 L (3.98-5.22) M/mm3 Hgb 11.4 (11.2-15.7) gm/L Hct 34.8 (34.1-44.9) % MCV 90.6 (79.4-94.8) fl MCH 29.7 (25.6-32.2) pg MCHC 32.8 (32.2-35.5) g/dl RDW Std Deviation 48.7 H (36.4-46.3) fL Plt Count 178 L (182-369) K/mm3 MPV 10.3 (9.4-12.3) fl Neut % (Auto) 38.6 (34.0-71.1) % Lymph % (Auto) 42.4 (19.3-51.7) % [place] % (Auto) 16.3 H (4.7-12.5) % Eos % (Auto) 2.1 (0.7-5.8) Baso % (Auto) 0.3 (0.1-1.2) % Neut # (Auto) 1.50 L (1.56-6.13) K/mm3 Lymph # (Auto) 1.64 (1.18-3.74) K/mm3 [place] # (Auto) 0.63 H (0.24-0.36) K/mm3 Eos # (Auto) 0.08 (0.04-0.36) K/mm3 Baso # (Auto) 0.01 (0.01-0.08) K/mm3 Manual Slide Review Normal smear Sodium 136 (136-145) mEq/L Potassium 3.7 (3.5-5.1) mEq/L Chloride 100 (98-107) mEq/L Carbon Dioxide 26 (21-32) mEq/L Anion Gap 13.7 (5-15) BUN 13 (7-18) mg/dL Creatinine 0.6 (0.55-1.02) mg/dL Est Cr Clr Drug Dosing 61.13 mL/min Estimated GFR (MDRD) > 60 (>60) mL/min BUN/Creatinine Ratio 21.7 H (14-18) Glucose 83 (83-115) mg/dL Calcium 8.2 L (8.5-10.1) mg/dL Magnesium 2.4 (1.8-2.4) mg/dl C-Reactive Protein 7.0 H* (<1.0) mg/dL Mikey Results Last 24 Hours: Microbiology 09/30/17 16:25 Gram Stain - Preliminary Sputum - Other Sputum Culture - Final Med Orders - Current: Current Medications Acetaminophen (Tylenol) 650 mg PO Q4H PRN PRN Reason: Pain (Mild 1-3)/fever Hydrocodone Bitart/Acetaminophen ([place] 325-5 Mg) 1 tab PO Q4H PRN PRN Reason: Pain (moderate 4-6) Albuterol/Ipratropium (Duoneb 3.0-0.5 Mg/3 Ml) 3 ml NEB Q4H PRN PRN Reason: Shortness Of Breath/wheezing Bisacodyl (Dulcolax) 5 mg PO DAILY PRN PRN Reason: Constipation Docusate Sodium (Colace) 100 mg PO BID PRN PRN Reason: Constipation Enoxaparin Sodium (Lovenox) 40 mg SUBCUT DAILY [facility] Last Admin: 09/30/17 09:15 Dose: 40 mg Hydralazine HCl (Apresoline) 10 mg IVPUSH Q6H PRN PRN Reason: Hypertension Ibuprofen (Motrin) 600 mg PO Q6H PRN PRN Reason: Pain Last Admin: 09/30/17 09:19 Dose: 600 mg Magnesium Sulfate (Pharmacy To Dose - Magnesium Replacement) 0 dose .XX ASDIRECTED PRN PRN Reason: RX TO WATCH MAG LEVELS Metoprolol Tartrate (Lopressor) 5 mg IVPUSH Q4H PRN PRN Reason: Tachycardia (Bisoprolol Fumarate /Hctz 0.5 Tab)*Pt Own Med* 0.5 tab PO BID [facility] Last Admin: 09/30/17 21:13 Dose: 0.5 tab Ondansetron HCl (Zofran Odt) 4 mg PO Q6H PRN PRN Reason: nausea, able to take PO Ondansetron HCl (Zofran) 4 mg IV Q6H PRN PRN Reason: Nausea/Vomiting Polyethylene Glycol (Miralax) 17 gm PO DAILY PRN PRN Reason: Constipation Potassium Chloride (Pharmacy To Dose - Potassium Replacement) 1 dose .XX ASDIRECTED PRN PRN Reason: RX TO WATCH K LEVELS Senna/Docusate Sodium (Senna Plus) 1 tab PO BID PRN PRN Reason: Constipation Temazepam (Restoril) 7.5 mg PO BEDTIME PRN PRN Reason: Sleep Discontinued Medications Acetaminophen (Tylenol) 650 mg PO NOW ONE Stop: 09/29/17 20:18 Last Admin: 09/29/17 20:22 Dose: 650 mg Acetaminophen/Butalbital/Caffeine (Fioricet 325-50-40 Mg) 1 tab PO ONETIME ONE Stop: 09/30/17 10:56 Last Admin: 09/30/17 11:50 Dose: 1 tab Sodium Chloride (Normal Saline) 1,000 mls @ 75 mls/hr IV ASDIRECTED [facility] Stop: 09/30/17 12:49 Last Admin: 09/30/17 00:42 Dose: 75 mls/hr Magnesium Sulfate 2 gm/ Premix 50 mls @ 50 mls/hr IV ONETIME ONE Stop: 09/29/17 23:59 Last Admin: 09/30/17 00:42 Dose: 50 mls/hr Sodium Chloride (Normal Saline) 1,000 mls @ 75 mls/hr IV ASDIRECTED [facility]OLIN Stop: 10/01/17 03:49 Last Admin: 09/30/17 14:55 Dose: 75 mls/hr Potassium Chloride (Klor-Con M20) 20 meq PO Q4H [facility] Stop: 09/30/17 13:31 Potassium Chloride (Klor-Con M20) 40 meq PO Q4H [facility] Stop: 09/30/17 13:31 Last Admin: 09/30/17 14:54 Dose: 40 meq - My Orders Last 24 Hours: My Active Orders 09/30/17 20:10 CULTURE SPUTUM + SMEAR [RM] Routine - Plan Plan:: I/P Acute: Influenza -Positive for influenza A on screen -CXR negative for acute findings -Afebrile but chilled -Reports left sided weakness at baseline due to spinal spinal cyst and surgery, but much worse now - improving -Unable to ambulate on own - attempted to get out of bed at home and fell; was unable to get back into bed on own at admission -improving -Symptoms >48 hours - outside window for Tamiflu -Supportive care -IV fluids as ordered - hold for now -PT/OT -Discussed possible need for SNF rehab stay in ED - refusing now -WBC 6.80-->7.23 -CRP 7.0 -Lactic acid 1.5 -Does have productive cough - will order sputum culture -Blood cultures obtained in ED - pending Generalized weakness, improved -2/2 above -See above Resolved Headache -Pain medications as needed -Fioricet -Improved from ER -Monitor Chronic: HLD HTN - stable 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 Head at [facility] here in [place].
[2017-10-01] MEDS: HCTZ PO SCH (08:38)
[2017-10-01] MEDS: Enoxaparin 40 MG/0.4 ML Syringe SUBCUT SCH (08:38)
[2017-10-01] MEDS: BISOPROLOL FUMARATE PO SCH (08:38)
[2017-10-01] MEDS ORDERED: Magnesium Oxide 400 MG Tab PO SCH (09:30)
[2017-10-01] MEDS ORDERED: Magnesium Sulfate (4.06 MEQ/ML) 1 GM/2 ML SDV IV ONE (11:39)
--- NOTE | 2017-10-01 12:02 | PCM.DCSUM1 ---
Discharge Summary - Hospital Course Brief History: Rosibel Rodriguez is a 77 yo female who presents to our ED D today with chills, sinus congestion, headache, and a productive cough of clear sputum for the past few days. She was admitted for medical management of viral illness from influenza A. - Discharge Data Discharge Date: 10/01/17 Discharge Disposition: Home, Self-Care 01 Condition: Good - Discharge Diagnosis/Problem(s) (1) Influenza A SNOMED Code(s): 379423596 ICD Code: J10.1 - FLU DUE TO OTH IDENT INFLUENZA VIRUS W OTH RESP MANIFEST Status: Acute Priority: High (2) Generalized weakness SNOMED Code(s): 83614647 ICD Code: R53.1 - WEAKNESS Status: Resolved Priority: High (3) Headache SNOMED Code(s): 11078812 ICD Code: R51 - HEADACHE Status: Resolved Priority: Medium Qualifiers: Headache type: tension-type Headache chronicity pattern: acute headache Intractability: not intractable Qualified Code(s): G44.209 - Tension-type headache, unspecified, not intractable - Patient Summary/Data Operative Procedure(s) Performed: None Complications: None Consults: Consultations 09/29/17 23:21 Consult to Case Management [CONS] Routine Consult to Water Commissioner [CONS] Routine Consult to Spiritual Care [CONS] Routine OT Evaluation and Treatment [CONS] Routine PT Evaluation and Treatment [CONS] Routine Labs Pending at D/C: None Recommended Follow-up Testing/Procedures: None Planned Operative Procedure(s) after DC: None Hospital Course: Patient was primarily admitted for medical management of acute viral illness 2/ 2 Influenza. She was found positive for influenza A but received no antiviral treatment. Patient was outside the window for treatment. However she was provided supportive care and appropriate medical treatment to improve her functional status. Her generalized weakness considerably improved as she slowly recovered from her viral illness. Her hospital course was uncomplicated and the rest of her chronic medical illness remained stable during this admission. Patient was clinically stable upon discharge. She was advised to drink and eat adequately. She was further advised to come back or seek immediate care should her symptoms persist or get worse. The patient expressed understanding and in agreement with the plans as discussed above. All questions were answered. - Patient Instructions Diet: Usual Diet as Tolerated Activity: As Tolerated Driving: Do Not Drive Showering/Bathing: May Shower Notify Provider of: Fever, Increased Pain, Nausea and/or Vomiting Other/Special Instructions: - Please continue all home medications. - Makes sure you drink and eat adequately. - Follow up with you PCP in 1 week. - Call your family doctor for questions or concerns after discharge - Discharge Plan Home Medications: Home Meds Bisoprolol Fumarate/HCTZ [Ziac 2.5-6.25 MG] 0.5 tab PO BID 10/17/16 [History] Patient Handouts: Near-Syncope, Influenza, Adult, [id number] Referrals: Rao Head MD [Primary Care Provider] - (Please call and schedule a post-hospital follow-up appointment with your primary care doctor, Dr. Head, within 1 week. ) - Discharge Summary/Plan Comment DC Time >30 min.: Yes (45 mins) Discharge Summary/Plan Comment: Discharge to Home - General Info Date of Service: 10/01/17 Admission Dx/Problem (Free Text: Influenza Subjective Update: Follow Up Functional Status: Reports: Pain Controlled, Tolerating Diet, Ambulating, Urinating. Denies: New Symptoms - Review of Systems General: Denies: Fever, Weakness, Fatigue, Malaise, Chills HEENT: Reports: No Symptoms. Denies: Headaches Pulmonary: Denies: Shortness of Breath Cardiovascular: Denies: Chest Pain Gastrointestinal: Denies: Abdominal Pain, Nausea, Vomiting Genitourinary: Reports: No Symptoms Musculoskeletal: Reports: No Symptoms Skin: Reports: Other (psoriatic rash at her back) Neurological: Reports: Gait Disturbance. Denies: Confusion, Difficulty Walking , Weakness Psychiatric: Denies: No Symptoms, Depression, Anxiety, Hallucinations Systems Review Comment: No significant overnight or acute issues. She feels pretty good. She has no complaints and wants to go home. She is able to up on her own without assistance. - Patient Data Vitals - Most Recent: Last Vital Signs Temp 36.8 C 10/01/17 08:36 Pulse 83 10/01/17 08:36 Resp 20 10/01/17 08:36 BP 146/62 H 10/01/17 08:36 Pulse Ox 97 10/01/17 08:36 Weight - Most Recent: 61.19 kg I&O - Last 24 hours: Intake & Output 09/30/17 10/01/1717 22:59 06:59 14:59 Intake Total 1215 700 180 Output Total 250 1500 Balance 965 -800 180 Lab Results - Last 24 hrs: Laboratory Results - last 24 hr 10/01/17 10/01/17 Range/Units 05:52 05:52 WBC 3.87 L (3.98-10.04) K/mm3 RBC 3.84 L (3.98-5.22) M/mm3 Hgb 11.4 (11.2-15.7) gm/L Hct 34.8 (34.1-44.9) % MCV 90.6 (79.4-94.8) fl MCH 29.7 (25.6-32.2) pg MCHC 32.8 (32.2-35.5) g/dl RDW Std Deviation 48.7 H (36.4-46.3) fL Plt Count 178 L (182-369) K/mm3 MPV 10.3 (9.4-12.3) fl Neut % (Auto) 38.6 (34.0-71.1) % Lymph % (Auto) 42.4 (19.3-51.7) % Story % (Auto) 16.3 H (4.7-12.5) % Eos % (Auto) 2.1 (0.7-5.8) Baso % (Auto) 0.3 (0.1-1.2) % Neut # (Auto) 1.50 L (1.56-6.13) K/mm3 Lymph # (Auto) 1.64 (1.18-3.74) K/mm3 [place] # (Auto) 0.63 H (0.24-0.36) K/mm3 Eos # (Auto) 0.08 (0.04-0.36) K/mm3 Baso # (Auto) 0.01 (0.01-0.08) K/mm3 Manual Slide Review Abnormal smear Sodium 141 (136-145) mEq/L Potassium 4.6 (3.5-5.1) mEq/L Chloride 108 H (98-107) mEq/L Carbon Dioxide 26 (21-32) mEq/L Anion Gap 11.6 (5-15) BUN 13 (7-18) mg/dL Creatinine 0.6 (0.55-1.02) mg/dL Est Cr Clr Drug Dosing 61.13 mL/min Estimated GFR (MDRD) > 60 (>60) mL/min BUN/Creatinine Ratio 21.7 H (14-18) Glucose 90 (83-115) mg/dL Calcium 8.2 L (8.5-10.1) mg/dL Magnesium 1.8 (1.8-2.4) mg/dl C-Reactive Protein 4.6 H* (<1.0) mg/dL LAYO Results - Last 24 hrs: Microbiology 09/30/17 16:25 Gram Stain - Preliminary Sputum - Other Sputum Culture - Final Med Orders - Current: Current Medications Acetaminophen (Tylenol) 650 mg PO Q4H PRN PRN Reason: Pain (Mild 1-3)/fever Hydrocodone Bitart/Acetaminophen ([place] 325-5 Mg) 1 tab PO Q4H PRN PRN Reason: Pain (moderate 4-6) Albuterol/Ipratropium (Duoneb 3.0-0.5 Mg/3 Ml) 3 ml NEB Q4H PRN PRN Reason: Shortness Of Breath/wheezing Bisacodyl (Dulcolax) 5 mg PO DAILY PRN PRN Reason: Constipation Docusate Sodium (Colace) 100 mg PO BID PRN PRN Reason: Constipation Enoxaparin Sodium (Lovenox) 40 mg SUBCUT DAILY [facility] Last Admin: 10/01/17 08:38 Dose: 40 mg Hydralazine HCl (Apresoline) 10 mg IVPUSH Q6H PRN PRN Reason: Hypertension Magnesium Sulfate/Dextrose 1 (gm/ Premix) 100 mls @ 100 mls/hr IV ONETIME ONE Stop: 10/01/17 12:59 Ibuprofen (Motrin) 600 mg PO Q6H PRN PRN Reason: Pain Last Admin: 09/30/17 09:19 Dose: 600 mg Magnesium Sulfate (Pharmacy To Dose - Magnesium Replacement) 0 dose .XX ASDIRECTED PRN PRN Reason: RX TO WATCH MAG LEVELS Metoprolol Tartrate (Lopressor) 5 mg IVPUSH Q4H PRN PRN Reason: Tachycardia (Bisoprolol Fumarate /Hctz 0.5 Tab)*Pt Own Med* 0.5 tab PO BID [facility] Last Admin: 10/01/17 08:38 Dose: 0.5 tab Ondansetron HCl (Zofran Odt) 4 mg PO Q6H PRN PRN Reason: nausea, able to take PO Ondansetron HCl (Zofran) 4 mg IV Q6H PRN PRN Reason: Nausea/Vomiting Polyethylene Glycol (Miralax) 17 gm PO DAILY PRN PRN Reason: Constipation Potassium Chloride (Pharmacy To Dose - Potassium Replacement) 1 dose .XX ASDIRECTED PRN PRN Reason: RX TO WATCH K LEVELS Senna/Docusate Sodium (Senna Plus) 1 tab PO BID PRN PRN Reason: Constipation Temazepam (Restoril) 7.5 mg PO BEDTIME PRN PRN Reason: Sleep Discontinued Medications Acetaminophen (Tylenol) 650 mg PO NOW ONE Stop: 09/29/17 20:18 Last Admin: 09/29/17 20:22 Dose: 650 mg Acetaminophen/Butalbital/Caffeine (Fioricet 325-50-40 Mg) 1 tab PO ONETIME ONE Stop: 09/30/17 10:56 Last Admin: 09/30/17 11:50 Dose: 1 tab Sodium Chloride (Normal Saline) 1,000 mls @ 75 mls/hr IV ASDIRECTED [facility] Stop: 09/30/17 12:49 Last Admin: 09/30/17 00:42 Dose: 75 mls/hr Magnesium Sulfate 2 gm/ Premix 50 mls @ 50 mls/hr IV ONETIME ONE Stop: 09/29/17 23:59 Last Admin: 09/30/17 00:42 Dose: 50 mls/hr Sodium Chloride (Normal Saline) 1,000 mls @ 75 mls/hr IV ASDIRECTED [facility] Stop: 10/01/17 03:49 Last Admin: 09/30/17 14:55 Dose: 75 mls/hr Magnesium Oxide (Magnesium Oxide) 400 mg PO TID [facility] Stop: 10/01/17 21:01 Magnesium Sulfate (Magnesium Sulfate 50%) 1 gm IV ONETIME ONE Stop: 10/01/17 11:40 Potassium Chloride (Klor-Con M20) 20 meq PO Q4H [facility] Stop: 09/30/17 13:31 Potassium Chloride (Klor-Con M20) 40 meq PO Q4H [facility] Stop: 09/30/17 13:31 Last Admin: 09/30/17 14:54 Dose: 40 meq - Exam General: Reports: Alert, Oriented, Cooperative, No Acute Distress HEENT: Reports: Pupils Equal, Pupils Reactive, EOMI, Mucous Membr. Moist/[place] Neck: Reports: Supple, Trachea Midline, No JVD, No Thyromegaly Lungs: Reports: Normal Respiratory Effort, Decreased Breath Sounds Cardiovascular: Reports: Regular Rate, Regular Rhythm GI/Abdominal Exam: Normal Bowel Sounds, Soft, Non-Tender, No Organomegaly, No Distention, No Abnormal Bruit, No Mass (Female) Exam: Deferred Rectal (Female) Exam: Deferred Back Exam: Reports: Normal Inspection, Decreased Range of Motion, Other ( psoriatic rash) Extremities: Normal Inspection, Normal Range of Motion, Non-Tender, No Pedal Edema, Normal Capillary Refill Skin: Reports: Warm, Dry, Intact Neurological: Reports: No New Focal Deficit. Denies: Normal Gait Psy/Mental Status: Reports: Alert, Normal Affect, Normal Mood *Q Meaningful Use (DIS) - VTE *Q VTE Criteria *Q: - Stroke *Q Stroke Criteria *Q: - AMI *Q AMI Criteria *Q:
[2017-10-01 12:45] VITALS: BP 108/53
--- NOTE | 2017-10-02 10:11 | CR ---
Chest: Two views of the chest were obtained. Comparison: Prior chest x-ray of 09/29/17. Heart size is normal. Mild tortuosity of the thoracic aorta is seen. Small nodule is identified within the right lung base. This is stable from prior chest x-ray and is felt to be incidental. No acute pulmonary densities are seen. Scoliosis and degenerative change are seen within the spine. Impression: 1. Incidental findings. Nothing acute is identified. Diagnostic code #2 I agree with preliminary report issued by [facility] ([facility] report finalized on 10/01/17, 10:36 AM Central Time)
== END 2017-10-01 14:22 | disposition home or self-care (01) | DRG 195 ==
LOC: JD.ED 18:33 → JD.MS 21:56 → UNDOADMIN 21:56 → JD.MS 22:57 → UNDODISIN 10-01 14:22
PROVIDERS: ADMIT Internal Medicine; ATTEND Internal Medicine
DX: J10.1 Influenza due to other identified influenza virus with other respiratory manifestations (principal); G44.209 Tension-type headache, unspecified, not intractable; I10 Essential (primary) hypertension; Z66 Do not resuscitate; N39.498 Other specified urinary incontinence; R53.1 Weakness; W06.XXXA Fall from bed, initial encounter; R05 Cough; Y92.003 Bedroom of unspecified non-institutional (private) residence as the place of occurrence of the external cause; E78.00 Pure hypercholesterolemia, unspecified; H54.7 Unspecified visual loss; L40.9 Psoriasis, unspecified; G96.19 Other disorders of meninges, not elsewhere classified; R26.2 Difficulty in walking, not elsewhere classified
CPT/HCPCS: 36415; 71010; 80053; 81001; 83605; 83735; 84443; 84484; 85025; 87040 ×2; 87804 ×2; 93005; 99285; A9270; P9612; 71020; 71020-26; 80048; 86140; 87070; 87205; 93010; 97110-GO; 97116-GP; 97162-GP; 97166-GO; 97530-GO; 99283-25; J1650; J3475; J7040

== ENCOUNTER 2020-03-06 12:41 | Emergency (ER) | payer MEDICARE, BC ==
[2020-03-06 13:24] VITALS: BP 190/84; PULSE 67
[2020-03-06] MEDS ORDERED: Sodium Chloride 0.9% 10 ML Syringe FLUSH PRN (14:11)
[2020-03-06] MEDS ORDERED: HYDROmorphone 0.5 MG/0.5 ML Syringe IVPUSH ONE (14:11)
--- NOTE | 2020-03-06 14:19 | EDM.PDOC ---
ED HPI GENERAL MEDICAL PROBLEM - General Chief Complaint: General Stated Complaint: LT HIP AND WRIST INJURY Time Seen by Provider: 03/06/20 13:56 Source of Information: Reports: Patient History Limitations: Reports: No Limitations - History of Present Illness INITIAL COMMENTS - FREE TEXT/NARRATIVE: Patient is a 79-year-old female who presents to the emergency department with complaints of neck, left arm, and left hip pain after falling at home. She states that she was reaching out to grab a chair to sit down and ended up falling onto her left side. She is unsure the exact mechanism, however states the chair did have wheels that she thinks it may have rolled away. She also states that her "balance is bad" and she has fallen on a number of occasions due to this. She uses a cane at home and does have a walker that she can use as needed. She has a history of cervical spine surgery and is concerned that she may have damaged her neck. She does have tenderness throughout her neck. She also states she hit her head, however she did not lose consciousness. She is not on any blood thinners. She has pain from her shoulder all the way down her left arm. Any movement causes the pain to worsen. She cannot localize one particular area of the arm that hurts more than the rest. She also complains of pain to her left hip. She has been able to bear weight and walk on the extremity since the fall; however, states it is painful. 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: Reports: Other (see below) Other 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: none Left Hip Pain Score (Numeric/FACES): 10 Left Arm Pain Score (Numeric/FACES): 10 - Related Data Allergies Allergy/AdvReac Type Severity Reaction Status Date / Time No Known Allergies Allergy Verified 09/29/17 18:48 Home Meds: Home Meds Bisoprolol/Hydrochlorothiazide [Ziac 2.5-6.25 MG] 2.5 - 6.25 mg PO BID 10/17/16 [History] atorvaSTATin [Lipitor] 10 mg PO DAILY 03/06/20 [History] Past Medical History HEENT History: Reports: Impaired Vision Other HEENT History: glasses Cardiovascular History: Reports: High Cholesterol, Hypertension Gastrointestinal History: Reports: None Genitourinary History: Reports: Urinary Incontinence 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 2cups coffee a day. - Recreational Drug Use Recreational Drug Use: No ED ROS GENERAL - Review of Systems Review Of Systems: Comprehensive ROS is negative, except as noted in HPI. ED EXAM, GENERAL - Physical Exam Exam: See Below Exam Limited By: No Limitations General Appearance: Alert, WD/WN, No Apparent Distress Head: Atraumatic, Normocephalic Neck: Normal Inspection, Supple, Tender Lateral, Tender Midline Respiratory/Chest: No Respiratory Distress, Lungs Clear, Normal Breath Sounds, No Accessory Muscle Use, Chest Non-Tender Cardiovascular: Normal Peripheral Pulses, Regular Rate, Rhythm, No Edema, No Gallop, No JVD, No Murmur, No Rub Extremities: Other (Tenderness to palpation throughout the left arm. Worse over the area of the upper humerus. No obvious deformity. Mild tenderness to posterior palpation of the left hip. She does have full range of motion of this joint.) Neurological: Alert, Oriented, CN II-XII Intact, Normal Cognition, Normal Gait, Normal Reflexes, No Motor/Sensory Deficits Psychiatric: Normal Affect, Normal Mood Skin Exam: Warm, Dry, Intact, Normal Color, No Rash Course - Vital Signs Last Recorded V/S: Last Vital Signs Temp 98.1 F 03/06/20 13:20 Pulse 67 03/06/20 13:20 Resp 20 03/06/20 13:20 BP 190/84 H 03/06/20 13:20 Pulse Ox 98 03/06/20 13:20 - Orders/Labs/Meds Orders: Active Orders 24 hr Category Date Time Status Peripheral IV Care [RC] . DIRECTED Care 03/06/20 14:11 Active UA W/MICROSCOPIC [URIN] Stat Lab 03/06/20 15:44 Results Sodium Chloride 0.9% [Saline Flush] Med 03/06/20 14:11 Active 10 ml FLUSH ASDIRECTED PRN Peripheral IV Insertion Adult [OM.PC] Stat Oth 03/06/20 14:10 Ordered Medication Orders Sodium Chloride (Saline Flush) 10 ml FLUSH ASDIRECTED PRN PRN Reason: Keep Vein Open Last Admin: 03/06/20 14:27 Dose: 10 ml Labs: Laboratory Tests 03/06/20 03/06/20 03/06/20 Range/Units 15:32 15:32 15:44 WBC 9.98 (3.98-10.04) K/mm3 RBC 4.23 (3.98-5.22) M/mm3 Hgb 12.7 (11.2-15.7) gm/dl Hct 39.5 (34.1-44.9) % MCV 93.4 (79.4-94.8) fl MCH 30.0 (25.6-32.2) pg MCHC 32.2 (32.2-35.5) g/dl RDW Std Deviation 49.3 H (36.4-46.3) fL Plt Count 214 (182-369) K/mm3 MPV 11.0 (9.4-12.3) fl Neut % (Auto) 68.9 (34.0-71.1) % Lymph % (Auto) 20.0 (19.3-51.7) % [place] % (Auto) 7.4 (4.7-12.5) % Eos % (Auto) 3.0 (0.7-5.8) Baso % (Auto) 0.3 (0.1-1.2) % Neut # (Auto) 6.87 H (1.56-6.13) K/mm3 Lymph # (Auto) 2.00 (1.18-3.74) K/mm3 [place] # (Auto) 0.74 H (0.24-0.36) K/mm3 Eos # (Auto) 0.30 (0.04-0.36) K/mm3 Baso # (Auto) 0.03 (0.01-0.08) K/mm3 Sodium 139 (136-145) mEq/L Potassium 3.8 (3.5-5.1) mEq/L Chloride 104 (98-107) mEq/L Carbon Dioxide 29 (21-32) mEq/L Anion Gap 9.8 (5-15) BUN 21 H (7-18) mg/dL Creatinine 0.8 (0.55-1.02) mg/dL Est Cr Clr Drug Dosing 44.44 mL/min Estimated GFR (MDRD) > 60 (>60) mL/min BUN/Creatinine Ratio 26.3 H (14-18) Glucose 91 (83-115) mg/dL Calcium 8.8 (8.5-10.1) mg/dL Total Bilirubin 0.3 (0.2-1.0) mg/dL AST 25 (15-37) U/L ALT 31 (14-59) U/L Alkaline Phosphatase 74 (46-116) U/L Total Protein 8.4 H (6.4-8.2) g/dl Albumin 3.2 L (3.4-5.0) g/dl Globulin 5.2 gm/dL Albumin/Globulin Ratio 0.6 L (1-2) Urine Color Yellow (Yellow) Urine Appearance Clear (Clear) Urine pH 7.0 (5.0-8.0) Ur Specific [place] > or = 1.030 (1.005-1.030) Urine Protein Negative (Negative) Urine Glucose (UA) Negative (Negative) Urine Ketones 1+ H (Negative) Urine Occult Blood Trace-intact H (Negative) Urine Nitrite Negative (Negative) Urine Bilirubin Negative (Negative) Urine Urobilinogen 0.2 (0.2-1.0) Ur Leukocyte Esterase Negative (Negative) Meds: Medications Generic Name Dose Route Start Last Admin Trade Name Freq PRN Reason Stop Dose Admin Sodium Chloride 10 ml 03/06/20 14:11 03/06/20 14:27 Saline Flush FLUSH 10 ml ASDIRECTED PRN Administration Keep Vein Open Discontinued Medications Generic Name Dose Route Start Last Admin Trade Name Freq PRN Reason Stop Dose Admin Hydromorphone HCl 0.25 mg 03/06/20 14:11 03/06/20 14:27 Dilaudid IVPUSH 03/06/20 14:12 0.25 mg ONETIME ONE Administration - Re-Assessments/Exams Free Text/Narrative Re-Assessment/Exam: 03/06/20 16:17 Xays were completed of the entire left arm, and left hip. There were no acute abnormalities present. CT scan of the head and neck were also negative for any acute abnormalities. Her lab work was found to be normal. She does not have a urinary tract infection and her electrolytes are normal. Patient has been able to get up and walk on her leg. She states that it hurts "a little bit "but that her "legs are fine ". The majority of her pain is in her left arm. We will provide her with a sling to use for comfort. Recommend that she use Tylenol or ibuprofen as needed for pain. Discussed with her that if her arm pain is not improving by early next week, she should follow-up with her primary care provider just discussed the possibility of an MRI of her shoulder. She is in agreement with this plan. Discharge instructions as documented. Departure - Departure Time of Disposition: 16:18 Disposition: Home, Self-Care 01 Condition: Good Clinical Impression: Left arm pain, Hip pain, Neck pain - Discharge Information *PRESCRIPTION DRUG MONITORING PROGRAM REVIEWED*: No *COPY OF PRESCRIPTION DRUG MONITORING REPORT IN PATIENT JEFRY: No Referrals: Rao Head MD [Primary Care Provider] - Forms: ED Department Discharge Additional Instructions: You were seen in the emergency department today for pain to your neck, left arm , and hip after a fall at home. X-rays and CTs were completed of all these areas and found to be normal. There are no fractures to be found. It is likely that you have bruised your left arm and this is causing your pain. You have been provided with a sling to use for comfort. It is important that you take your arm out of the sling a couple times a day and perform range of motion exercises to prevent frozen shoulder. You may use [id number] Tylenol or ibuprofen as needed for pain. You may also ice over the area of pain for 20 minutes every couple hours. Recommend that you use your cane or walker at all times at home. If the pain to your arm does not improve by early next week, I would recommend that you follow-up with your primary care provider. Return to the ER as needed. Sepsis Event Note - Evaluation Sepsis Screening Result: No Definite Risk - Focused Exam Vital Signs: Vital Signs Temp Pulse Resp BP Pulse Ox 03/06/20 13:20 98.1 F 67 20 190/84 H 98 Date Exam was Performed: 03/06/20 Time Exam was Performed: 16:14 - My Orders Last 24 Hours: My Active Orders 03/06/20 14:10 Peripheral IV Insertion Adult [OM.PC] Stat 03/06/20 14:11 Peripheral IV Care [RC] . DIRECTED Sodium Chloride 0.9% [Saline Flush] 10 ml FLUSH ASDIRECTED PRN 03/06/20 15:44 UA W/MICROSCOPIC [URIN] Stat - Assessment/Plan Last 24 Hours: My Active Orders 03/06/20 14:10 Peripheral IV Insertion Adult [OM.PC] Stat 03/06/20 14:11 Peripheral IV Care [RC] . DIRECTED Sodium Chloride 0.9% [Saline Flush] 10 ml FLUSH ASDIRECTED PRN 03/06/20 15:44 UA W/MICROSCOPIC [URIN] Stat
--- NOTE | 2020-03-06 15:10 | CT ---
Head CT Technique: Multiple axial sections through the brain were obtained. Comparison: No prior intracranial imaging is available. Findings: Ventricles along with basal cisterns and sulci over the convexities are mildly prominent. Diminished density is noted within portions of the periventricular white matter which is most likely due to small vessel ischemic demyelination change. No evidence of intracranial hemorrhage. No midline shift or mass-effect is seen. Mild atherosclerotic calcification is seen within the carotid siphon. Mild soft tissue swelling is noted within the posterior left parietal scalp. Bone window settings were reviewed. Hypoplastic right maxillary sinus is seen showing slight mucosal thickening which is most likely chronic. No acute paranasal sinus findings are suspected. Visualized mastoid sinuses show nothing acute. No acute calvarial finding is seen. Impression: 1. Mild soft tissue swelling within the posterior left parietal scalp. 2. Senescent change as noted above. Other findings believed to be incidental. 3. No acute intracranial abnormality is appreciated. Diagnostic code #2 This report was dictated in MDT
--- NOTE | 2020-03-06 15:13 | CR ---
Pelvis and left hip: AP view of the pelvis was obtained as well as AP and frog-leg lateral views left hip. Joint spaces within both hips are fairly well preserved. Degenerative change is partially visualized within the lumbar spine. Sacroiliac joints appear within normal limits. No acute fracture or other bony abnormality is appreciated. Several surgical clips are seen overlying the right inferior pubic ramus. Osteopenia is noted. Impression: 1. Findings as noted above. 2. Nothing acute is appreciated on AP pelvis or on 2 view left hip exam. Diagnostic code #2 This report was dictated in MDT
--- NOTE | 2020-03-06 15:14 | CR ---
Left humerus: 2 views of the left humerus were obtained. Comparison: No previous humerus study. No discrete fracture or other bony abnormality is appreciated. Soft tissue swelling is noted within the mid upper arm. Impression: 1. Soft tissue swelling within the mid upper arm. 2. No acute bony abnormality is appreciated. Diagnostic code #3 This report was dictated in MDT
--- NOTE | 2020-03-06 15:16 | CT ---
CT cervical spine Technique: Multiple axial sections were obtained from above C1 inferiorly to the mid T4 level. Reconstructed sagittal and coronal images were reviewed. Comparison: No prior cervical spine imaging is available. Findings: Posterior laminectomy is noted at C3-C7. Intrathecal catheter is noted which terminates to the left side at C2. Disc space narrowing is scattered throughout the cervical and thoracic spine. Anterior osteophytes are seen throughout the cervical and thoracic spine. Degenerative apophyseal change is seen throughout the cervical spine. No discrete fracture is appreciated. No abnormal subluxation is appreciated. Mild scoliosis is seen. Impression: 1. Extensive posterior laminectomy as noted above. Intrathecal catheter is seen which terminates to the left side at C2. 2. Degenerative change as noted above. 3. No acute fracture or abnormal subluxation is appreciated. Diagnostic code #2 This report was dictated in MDT
--- NOTE | 2020-03-06 15:28 | CR ---
Left forearm: 2 views of the left forearm were obtained. Comparison: No prior study. Bony structures are slightly osteopenic. No acute fracture or other abnormality is seen. Impression: 1. Nothing acute is identified on 2 view left forearm study. Diagnostic code #2 This report was dictated in MDT
== END 2020-03-06 16:30 | disposition home or self-care (01) ==
LOC: JD.ED 12:41
DX: M79.602 Pain in left arm (principal); M25.552 Pain in left hip; M54.2 Cervicalgia; E78.00 Pure hypercholesterolemia, unspecified; I10 Essential (primary) hypertension; Z79.899 Other long term (current) drug therapy; W19.XXXA Unspecified fall, initial encounter; Y92.009 Unspecified place in unspecified non-institutional (private) residence as the place of occurrence of the external cause
CPT/HCPCS: 36415; 70450; 72125; 73060; 73090; 73502; 80053; 81001; 85025; 96374; 99284; J1170

== ENCOUNTER 2021-09-22 09:41 | Emergency (ER) | payer MEDICARE, BC ==
[2021-09-22] MEDS ORDERED: Sodium Chloride 0.9% 10 ML Syringe FLUSH PRN (10:00)
--- NOTE | 2021-09-22 10:38 | CR ---
Chest: Frontal view of the chest was obtained. Comparison: Prior chest x-ray of 10/01/17. Slight density is seen within the left base. Small nodule is noted within the right lung base which is stable. Lungs otherwise are clear. Heart size is normal. Tortuous thoracic aorta is seen. Chronic rotator cuff tear is seen within the right shoulder. Scattered disc space narrowing and endplate spurring is noted within the spine. Impression: 1. Slight density within the left lung base raising the possibility of atelectasis. 2. Small nodule within the right lung base. 3. Other findings as noted above. 4. Nothing acute is suspected on frontal chest x-ray. Diagnostic code #2
[2021-09-22 11:47] VITALS: BP 177/81; PULSE 72
--- NOTE | 2021-09-22 12:04 | EDM.PDOC ---
ED HPI GENERAL MEDICAL PROBLEM - General Chief Complaint: Cardiovascular Problem Stated Complaint: HEADACHE CHEST HEAVY BLOODPRESSURE UP/DOWN Time Seen by Provider: 09/22/21 10:00 Source of Information: Reports: Patient - History of Present Illness INITIAL COMMENTS - FREE TEXT/NARRATIVE: 81 yr old female mainly worried about her BP. Has had mildly high readings at home yesterday and today in the 150's/90's primarily. Her chest feels mildly tight at times, has mild nospecific dizziness. Denies current Kraus or true vertigo. No chest pain at time of exam. Has not been coughing or short of breath. - Related Data Allergies Allergy/AdvReac Type Severity Reaction Status Date / Time No Known Allergies Allergy Verified 09/22/21 09:59 Home Meds: Home Meds Bisoprolol/Hydrochlorothiazide [Ziac 2.5-6.25 MG] 2.5 - 6.25 mg PO BID 10/17/16 [History] atorvaSTATin [Lipitor] 10 mg PO DAILY 03/06/20 [History] Past Medical History HEENT History: Reports: Impaired Vision Other HEENT History: glasses Cardiovascular History: Reports: High Cholesterol, Hypertension Gastrointestinal History: Reports: None Genitourinary History: Reports: Urinary Incontinence ELECTRONICS LEAD History: Reports: Other ELECTRONICS LEAD History: x4 Musculoskeletal History: Reports: Other (See Below) Other Musculoskeletal History: spinal cyst with drainage Dermatologic History: Reports: Psoriasis - Infectious Disease History Infectious Disease History: Reports: Chicken Pox, Shingles - Past Surgical History HEENT Surgical History: Reports: None Cardiovascular Surgical History: Reports: None GI Surgical History: Reports: Appendectomy Female Surgical History: Reports: Hysterectomy Dermatological Surgical History: Reports: None Social & Family History - Family History Family Medical History: No Pertinent Family History - Caffeine Use Caffeine Use: Reports: Coffee Other Caffeine Use: shares with her so 1/2 can per day of soda. 2cups coffee a day. ED ROS GENERAL - Review of Systems Review Of Systems: See Below Constitutional: Denies: Fever, Chills, Diaphoresis HEENT: Reports: No Symptoms Respiratory: Denies: Shortness of Breath, Pleuritic Chest Pain, Cough Cardiovascular: Reports: Chest Pain ( mild tightness) GI/Abdominal: Denies: Abdominal Pain, Nausea, Vomiting Skin: Reports: No Symptoms Neurological: Reports: Dizziness. Denies: Headache, Numbness, Tingling, Trouble Speaking, Difficulty Walking, Weakness ED EXAM, GENERAL - Physical Exam Exam: See Below General Appearance: Alert, No Apparent Distress Head: Atraumatic Neck: Supple Respiratory/Chest: No Respiratory Distress, Lungs Clear, Normal Breath Sounds Cardiovascular: Regular Rate, Rhythm GI/Abdominal: Soft, Non-Tender Back Exam: No: CVA Tenderness (L), CVA Tenderness (R) Extremities: Normal Inspection, Normal Range of Motion. No: Pedal Edema, Leg Pain, Increased Warmth, Redness Skin Exam: Warm, Dry, Normal Color #1 Interpretation EKG Date: 09/22/21 Rhythm: NSR Rate (Beats/Min): 74 [place]: Normal P-Wave: Present QRS: Normal ST-T: Other (slight st depression V4-v6.) QT: Normal Course - Vital Signs Last Recorded V/S: Last Vital Signs Temp 96.9 F 09/22/21 09:57 Pulse 72 09/22/21 11:47 Resp 18 09/22/21 09:57 BP 177/81 H 09/22/21 11:47 Pulse Ox 98 09/22/21 11:47 - Orders/Labs/Meds Labs: Laboratory Tests 09/22/21 09/22/21 09/22/21 Range/Units 10:10 10:10 10:10 WBC 7.07 (3.98-10.04) K/mm3 RBC 3.76 L (3.98-5.22) M/mm3 Hgb 11.2 D (11.2-15.7) gm/dl Hct 35.1 (34.1-44.9) % MCV 93.4 (79.4-94.8) fl MCH 29.8 (25.6-32.2) pg MCHC 31.9 L (32.2-35.5) g/dl RDW Std Deviation 50.3 H (36.4-46.3) fL Plt Count 277 (182-369) K/mm3 MPV 10.3 (9.4-12.3) fl Neut % (Auto) 61.3 (34.0-71.1) % Lymph % (Auto) 26.2 (19.3-51.7) % [place] % (Auto) 9.6 (4.7-12.5) % Eos % (Auto) 2.4 (0.7-5.8) Baso % (Auto) 0.4 (0.1-1.2) % Neut # (Auto) 4.33 (1.56-6.13) K/mm3 Lymph # (Auto) 1.85 (1.18-3.74) K/mm3 [place] # (Auto) 0.68 H (0.24-0.36) K/mm3 Eos # (Auto) 0.17 (0.04-0.36) K/mm3 Baso # (Auto) 0.03 (0.01-0.08) K/mm3 PT 10.9 (9.7-12.0) SECONDS INR 0.98 D-Dimer, Quantitative 0.69 H (0.19-0.50) mg/L Sodium 136 (136-145) mEq/L Potassium 3.5 (3.5-5.1) mEq/L Chloride 101 (98-107) mEq/L Carbon Dioxide 27 (21-32) mEq/L Anion Gap 11.5 (5-15) BUN 24 H (7-18) mg/dL Creatinine 0.8 (0.55-1.02) mg/dL Est Cr Clr Drug Dosing TNP Estimated GFR (MDRD) > 60 (>60) mL/min BUN/Creatinine Ratio 30.0 H (14-18) Glucose 108 H (70-99) mg/dL Calcium 8.4 L (8.5-10.1) mg/dL Magnesium 1.8 (1.8-2.4) mg/dL Total Bilirubin 0.2 (0.2-1.0) mg/dL AST 17 (15-37) U/L ALT 24 (14-59) U/L Alkaline Phosphatase 71 (46-116) U/L Troponin I < 0.017 (0.00-0.056) ng/mL NT-Pro-B Natriuret Pep (0-450) pg/mL Total Protein 9.9 H (6.4-8.2) g/dl Albumin 2.7 L (3.4-5.0) g/dl Globulin 7.2 gm/dL Albumin/Globulin Ratio 0.4 L (1-2) 12/14/21 Range/Units 10:10 WBC (3.98-10.04) K/mm3 RBC (3.98-5.22) M/mm3 Hgb (11.2-15.7) gm/dl Hct (34.1-44.9) % MCV (79.4-94.8) fl MCH (25.6-32.2) pg MCHC (32.2-35.5) g/dl RDW Std Deviation (36.4-46.3) fL Plt Count (182-369) K/mm3 MPV (9.4-12.3) fl Neut % (Auto) (34.0-71.1) % Lymph % (Auto) (19.3-51.7) % [place] % (Auto) (4.7-12.5) % Eos % (Auto) (0.7-5.8) Baso % (Auto) (0.1-1.2) % Neut # (Auto) (1.56-6.13) K/mm3 Lymph # (Auto) (1.18-3.74) K/mm3 [place] # (Auto) (0.24-0.36) K/mm3 Eos # (Auto) (0.04-0.36) K/mm3 Baso # (Auto) (0.01-0.08) K/mm3 PT (9.7-12.0) SECONDS INR D-Dimer, Quantitative (0.19-0.50) mg/L Sodium (136-145) mEq/L Potassium (3.5-5.1) mEq/L Chloride (98-107) mEq/L Carbon Dioxide (21-32) mEq/L Anion Gap (5-15) BUN (7-18) mg/dL Creatinine (0.55-1.02) mg/dL Est Cr Clr Drug Dosing Estimated GFR (MDRD) (>60) mL/min BUN/Creatinine Ratio (14-18) Glucose (70-99) mg/dL Calcium (8.5-10.1) mg/dL Magnesium (1.8-2.4) mg/dL Total Bilirubin (0.2-1.0) mg/dL AST (15-37) U/L ALT (14-59) U/L Alkaline Phosphatase (46-116) U/L Troponin I (0.00-0.056) ng/mL NT-Pro-B Natriuret Pep 136 (0-450) pg/mL Total Protein (6.4-8.2) g/dl Albumin (3.4-5.0) g/dl Globulin gm/dL Albumin/Globulin Ratio (1-2) Meds: Medications Discontinued Medications Generic Name Dose Route Start Last Admin Trade Name Freq PRN Reason Stop Dose Admin Sodium Chloride 10 ml 09/22/21 21:00 Sodium Chloride 0.9% 10 Ml Syringe FLUSH 0900,2100 CAROLIN Sodium Chloride 10 ml 09/22/21 10:00 09/22/21 10:11 Sodium Chloride 0.9% 10 Ml Syringe FLUSH 10 ml ASDIRECTED PRN Administration Keep Vein Open - Re-Assessments/Exams Free Text/Narrative Re-Assessment/Exam: 09/23/21 15:20 trop normal, BP has trended down, wasn't dangerously high to start out with, other labs also OK, discharge instr. as documented. Departure - Departure Time of Disposition: 12:01 Disposition: Home, Self-Care 01 Condition: Fair Clinical Impression: Atypical chest pain, Dizziness, Hypertension Instructions: Nonspecific Chest Pain, Adult, [id number], Dizziness, [id number] Referrals: Rao Head MD [Primary Care Provider] - Forms: ED Department Discharge Additional Instructions: Continue your BP medicine as prescribed for now. Check your BP about 3 times daily and continue to keep a record of that for Dr Islas. Try see Dr Islas next week, call for appt. If unable to see Dr Islas see one of the other providers. Return to ED as needed if symptoms worsening in any way. Sepsis Event Note (ED) - Evaluation Sepsis Screening Result: No Definite Risk
[2021-09-22] MEDS ORDERED: Sodium Chloride 0.9% 10 ML Syringe FLUSH SCH (21:00)
== END 2021-09-22 12:30 | disposition home or self-care (01) ==
LOC: JD.ED 09:41
DX: R07.89 Other chest pain (principal); R42 Dizziness and giddiness; I10 Essential (primary) hypertension; E78.00 Pure hypercholesterolemia, unspecified; Z79.899 Other long term (current) drug therapy
CPT/HCPCS: 36415; 71045; 71045-26; 80053; 83735; 83880; 84484; 85025; 85379; 85610; 93005; 99285-25

== ENCOUNTER 2022-04-16 09:22 | Emergency (ER) | payer MEDICARE, BC ==
[2022-04-16 09:38] VITALS: BP 157/63; PULSE 74
[2022-04-16] MEDS ORDERED: Potassium Chloride 20 MEQ Tab.ER PO ONE (15:19)
[2022-04-16] MEDS ORDERED: Cefdinir 300 MG Cap PO ONE (15:34)
== END 2022-04-16 16:00 | disposition home or self-care (01) ==
LOC: JD.ED 09:22
DX: R53.1 Weakness (principal); N39.0 Urinary tract infection, site not specified; I10 Essential (primary) hypertension; Z79.899 Other long term (current) drug therapy; Z90.49 Acquired absence of other specified parts of digestive tract; Z90.710 Acquired absence of both cervix and uterus
CPT/HCPCS: 36415; 70450; 70551; 80053; 81001; 84484; 85025; 85610; 85730; 87086; 93005; 99285; A9270

== ENCOUNTER 2022-07-29 13:19 | Day surgery (SDC) | payer MEDICARE, BC ==
[~2022-07-29 13:19] MED LIST: Cefuroxime 10 MG/ML SYRINGE EYELF SCH; Lidocaine 1% PF 2 ML SDV INJECT SCH; Pilocarpine 4% Ophth Soln 15 ML Bot EYELF SCH
[2022-07-29] MEDS: Polymyxin B/Trimethoprim 10 ML Bottle EYELF SCH ×3 (13:48→15:22)
[2022-07-29] MEDS: Brimonidine 0.2% Ophth Soln 5 ML Bottle EYELF SCH ×3 (13:54→15:22)
[2022-07-29] MEDS: Phenylephrine 2.5% Ophth Soln 2 ML Bot EYELF SCH ×5 (13:58→15:03)
[2022-07-29 14:03] VITALS: PULSE 65
[2022-07-29] MEDS: Tropicamide 1% Ophth Soln 15 ML Bottle EYELF SCH ×4 (14:03→14:43)
[2022-07-29] MEDS: Tetracaine HCl/PF 0.5% 4 ML Bottle EYEBOTH SCH ×4 (14:49→15:10)
[2022-07-29 15:55] VITALS: BP 148/59
== END 2022-07-29 15:45 | disposition home or self-care (01) ==
LOC: JD.SDS 13:19
PROVIDERS: ATTEND Ophthalmology
DX: H25.813 Combined forms of age-related cataract, bilateral (principal); H40.053 Ocular hypertension, bilateral; H16.103 Unspecified superficial keratitis, bilateral; H16.223 Keratoconjunctivitis sicca, not specified as Sjogren's, bilateral; H02.831 Dermatochalasis of right upper eyelid; H21.81 Floppy iris syndrome; H02.834 Dermatochalasis of left upper eyelid; I10 Essential (primary) hypertension; E78.00 Pure hypercholesterolemia, unspecified; M19.90 Unspecified osteoarthritis, unspecified site; C79.52 Secondary malignant neoplasm of bone marrow; C80.1 Malignant (primary) neoplasm, unspecified; Z90.49 Acquired absence of other specified parts of digestive tract; Z98.890 Other specified postprocedural states; Z90.710 Acquired absence of both cervix and uterus; Z79.899 Other long term (current) drug therapy; Z91.011 Allergy to milk products
CPT/HCPCS: 66982; J0697; V2632

== ENCOUNTER 2023-06-30 07:35 | Day surgery (SDC) | payer MEDICARE, BC ==
[~2023-06-30 07:35] MED LIST changes: -Cefuroxime 10 MG/ML SYRINGE EYELF SCH; +Cefuroxime 10 MG/ML SYRINGE EYERT SCH; -Pilocarpine 4% Ophth Soln 15 ML Bot EYELF SCH; +Pilocarpine 4% Ophth Soln 15 ML Bot EYERT SCH; +Tropicamide 1% Ophth Soln 15 ML Bottle EYERT SCH
[2023-06-30] MEDS: Polymyxin B/Trimethoprim 10 ML Bottle EYERT SCH ×3 (07:43→10:02)
[2023-06-30] MEDS: Brimonidine 0.2% Ophth Soln 15 ML Bottle EYERT SCH ×3 (07:47→10:02)
[2023-06-30] MEDS: Phenylephrine 2.5% Ophth Soln 2 ML Bot EYERT SCH ×5 (07:51→09:39)
[2023-06-30] MEDS: Tropicamide 1% Ophth Soln 3 ML Bottle EYERT SCH ×4 (07:54→08:26)
[2023-06-30] MEDS: Tetracaine HCl/PF 0.5% 4 ML Bottle EYEBOTH SCH ×4 (09:23→09:46)
[2023-06-30 16:52] VITALS: BP 160/81; PULSE 72
== END 2023-06-30 10:18 | disposition home or self-care (01) ==
LOC: JD.SDS 07:35
PROVIDERS: ATTEND Ophthalmology
DX: H25.811 Combined forms of age-related cataract, right eye (principal); M19.90 Unspecified osteoarthritis, unspecified site; E78.00 Pure hypercholesterolemia, unspecified; I10 Essential (primary) hypertension; H52.209 Unspecified astigmatism, unspecified eye; H21.81 Floppy iris syndrome; Z90.49 Acquired absence of other specified parts of digestive tract; Z90.710 Acquired absence of both cervix and uterus; Z98.42 Cataract extraction status, left eye; Z79.899 Other long term (current) drug therapy
CPT/HCPCS: 66984; A9270; C1780; J0697; 00142; 99100; J3490

== ENCOUNTER 2024-02-29 05:50 | Inpatient (IN) | payer MEDICARE, BC ==
[~2024-02-29 05:50] MED LIST changes: -Cefuroxime 10 MG/ML SYRINGE EYERT SCH; -Lidocaine 1% PF 2 ML SDV INJECT SCH; -Pilocarpine 4% Ophth Soln 15 ML Bot EYERT SCH; +Sodium Chloride 0.9% 10 ML Syringe FLUSH PRN; -Tropicamide 1% Ophth Soln 15 ML Bottle EYERT SCH
[2024-02-29] MEDS: Lactated Ringers 1,000 ML IV SCH (06:10)
[2024-02-29] MEDS ORDERED: Bupivacaine 0.5% 30 ML SDV ONE (06:11)
[2024-02-29] MEDS ORDERED: Ondansetron 4 MG/2 ML SDV ONE ×2 (06:14→06:33)
[2024-02-29] MEDS ORDERED: Dexamethasone 4 MG/ML 5 ML MDV ONE (06:14)
[2024-02-29] MEDS ORDERED: Propofol 200 MG/20 ML SDV ONE (06:14)
[2024-02-29] MEDS ORDERED: Midazolam 1 MG/ML 2 ML SDV ONE (06:15)
[2024-02-29] MEDS ORDERED: fentaNYL 250 MCG/5 ML SDV ONE ×2 (06:32→07:42)
[2024-02-29] MEDS ORDERED: Rocuronium 50 MG/5 ML Vial ONE (06:32)
[2024-02-29] MEDS ORDERED: ceFAZolin 2 GM Vial ONE (06:57)
[2024-02-29] MEDS ORDERED: ePHEDrine 50 MG/ML SDV ONE (07:03)
[2024-02-29] MEDS ORDERED: Sugammadex Sodium 200 MG/2 ML VIAL IV ONE (07:04)
[2024-02-29] MEDS ORDERED: Lactated Ringers 1,000 ML IV ONE ×2 (07:15→08:30)
[2024-02-29] MEDS ORDERED: HYDROmorphone 0.5 MG/0.5 ML Syringe IVPUSH PRN (07:25)
[2024-02-29] MEDS ORDERED: Ondansetron 4 MG/2 ML SDV IVPUSH PRN ×2 (07:25→14:35)
[2024-02-29] MEDS: Morphine 8 MG, EPINEPHrine 0.3 MG, Cefuroxime 750 MG, Ketorolac 30 MG, Sodium Chloride ... PRN (08:04)
[2024-02-29] MEDS: Vancomycin 1 GM SDV ONE (08:11)
[2024-02-29] MEDS: Tranexamic Acid 1,000 MG/10 ML Vial ONE (08:11)
[2024-02-29] MEDS ORDERED: Labetalol 100 MG/20 ML MDV ONE (08:15)
[2024-02-29] MEDS ORDERED: Labetalol 100 MG/20 ML MDV IVPUSH PRN (09:04)
[2024-02-29] MEDS: fentaNYL 100 MCG/2 ML SDV IVPUSH PRN (09:51)
[2024-02-29] MEDS: Acetaminophen/HYDROcodone 325-5 MG Tab PO PRN ×2 (11:30→15:17)
[2024-02-29] MEDS ORDERED: Sennosides 8.6 MG Tab PO PRN (14:35)
[2024-02-29] MEDS ORDERED: Docusate Sodium 100 MG Cap PO PRN (14:35)
[2024-02-29] MEDS ORDERED: Naloxone 0.4 MG/ML SDV IVPUSH PRN (14:35)
[2024-02-29] MEDS: Sodium Chloride 0.9% 10 ML Syringe FLUSH SCH (17:23)
[2024-02-29] MEDS: Acetaminophen 325 MG Tab PO PRN (21:38)
[2024-03-01] MEDS: Apixaban 2.5 MG Tab PO SCH (09:15)
[2024-03-01] MEDS: Morphine 2 MG/ML SYRINGE IVPUSH PRN (14:52)
[2024-03-02] MEDS ORDERED: Apixaban 2.5 MG Tab PO SCH (08:27)
[2024-03-02] MEDS ORDERED: LENALIDOMIDE 10 MG PO SCH (08:27)
[2024-03-02] MEDS: Losartan 100 MG Tab PO SCH (10:08)
[2024-03-02] MEDS: Hydrochlorothiazide 12.5 MG Cap PO SCH (10:09)
[2024-03-02] MEDS: Potassium Chloride 10 MEQ Tab.ER PO SCH (10:09)
[2024-03-02] MEDS: Zinc Sulfate 220 MG Cap PO SCH (10:09)
[2024-03-02 14:08] LABS: HEMATOCRIT 32.8 % (37.0-47.0); HEMOGLOBIN 11.3 gm/dl (12.0-16.0); MEAN CORPUSCULAR HGB CONC 34.5 g/dl (32.0-36.0); MEAN CORPUSCULAR VOLUME 90.1 fl (83.0-99.0); MEAN PLATELET VOLUME 10.3 fl (9.4-12.3); PLATELET COUNT,PLT 203 K/mm3 (150-400); RED BLOOD CELL COUNT 3.64 M/mm3 (4.10-5.30); WHITE BLOOD CELL COUNT,WBC 9.49 K/mm3 (3.9-11.3)
[2024-03-02] MEDS: Cholecalciferol (Vitamin D3) 25 MCG Tab PO SCH (14:19)
[2024-03-02 14:24] LABS: ANION GAP 12.2 (5-15); BUN/CREATININE RATIO 18.8 (14-18); CALCIUM 8.2 mg/dL (8.5-10.1); CREATININE 0.8 mg/dL (0.55-1.02); EST CRCL DRUG DOSING (CG) 39.61 mL/min; POTASSIUM,K 3.2 mEq/L (3.5-5.1)
[2024-03-02] MEDS: Sodium Chloride 0.9% 1,000 ML IV SCH (15:30)
[2024-03-02] MEDS: NS with KCl 40mEq 1,000 ML IV SCH (17:10)
[2024-03-02 20:22] LABS: ANION GAP 13.2 (5-15); BUN/CREATININE RATIO 22.9 (14-18); CALCIUM 8.4 mg/dL (8.5-10.1); CREATININE 0.7 mg/dL (0.55-1.02); EST CRCL DRUG DOSING (CG) 45.27 mL/min; POTASSIUM,K 3.2 mEq/L (3.5-5.1)
[2024-03-02 22:16] LABS: SODIUM,URINE RANDOM 115 mEq/L (40-220)
[2024-03-02 22:37] LABS: OSMOLALITY,URINE 503 mosm/kg (400-1100)
[2024-03-03 03:00] LABS: APPEARANCE,URINE SLT CLOUDY (Clear); BILIRUBIN,URINE NEGATIVE (Negative); COLOR,URINE YELLOW (Yellow); GLUCOSE,URINE NEGATIVE (Negative); KETONES,URINE TRACE (Negative); LEUKOCYTE ESTERASE,URINE 1+ (Negative); NITRITE,URINE NEGATIVE (Negative); OCCULT BLOOD,URINE 2+ (Negative); PH,URINE 6.5 (5.0-8.0); PROTEIN,URINE TRACE (Negative); UROBILINOGEN,URINE 0.2 (0.2-1.0)
[2024-03-03 03:09] LABS: BACTERIA,URINE MODERATE /hpf (FEW); MUCUS,URINE FEW /hpf (FEW); RBC,URINE 20-30 /hpf (0-5); SQUAMOUS EPITHELIAL CELLS,UR 20-30 /hpf (0-5)
[2024-03-03] MEDS: cefTRIAXone 2 GM in Sodium Chloride 0.9% 100 ML IV SCH (05:16)
[2024-03-03 05:50] LABS: ANION GAP 14.6 (5-15); BUN/CREATININE RATIO 18.3 (14-18); CREATININE 0.6 mg/dL (0.55-1.02); EST CRCL DRUG DOSING (CG) 52.82 mL/min; POTASSIUM,K 3.6 mEq/L (3.5-5.1)
[2024-03-03] MEDS: Atropine/Diphenoxylate 0.025-2.5 MG Tab PO PRN (05:50)
[2024-03-04] MEDS: hydrALAZINE 20 MG/ML SDV IVPUSH PRN (09:29)
[2024-03-04] MEDS: amLODIPine 5 MG Tab PO SCH (10:00)
[2024-03-04] MEDS: Acetaminophen 325 MG Tab PO PRN (10:39)
[2024-03-04 10:51] LABS: ANION GAP 13.2 (5-15); BUN/CREATININE RATIO 15.7 (14-18); CALCIUM 8.4 mg/dL (8.5-10.1); CREATININE 0.7 mg/dL (0.55-1.02); EST CRCL DRUG DOSING (CG) 45.27 mL/min; POTASSIUM,K 4.2 mEq/L (3.5-5.1)
[2024-03-05 06:16] LABS: ANION GAP 13.5 (5-15); BUN/CREATININE RATIO 16.7 (14-18); CALCIUM 8.5 mg/dL (8.5-10.1); CREATININE 0.6 mg/dL (0.55-1.02); EST CRCL DRUG DOSING (CG) 52.82 mL/min; POTASSIUM,K 4.5 mEq/L (3.5-5.1)
[2024-03-05] MEDS: Acetaminophen/HYDROcodone 325-5 MG Tab PO ONE (10:58)
[2024-03-05] MEDS ORDERED: Acetaminophen/HYDROcodone 325-5 MG Tab PO PRN (13:18)
[2024-03-05] MEDS: Saccharomyces Boulardii (Probiotic) 250 MG Cap PO SCH (21:45)
[2024-03-06 06:25] LABS: HEMOGLOBIN 10.7 gm/dl (12.0-16.0); MEAN CORPUSCULAR HGB CONC 33.4 g/dl (32.0-36.0); MEAN CORPUSCULAR VOLUME 92.8 fl (83.0-99.0); MEAN PLATELET VOLUME 9.8 fl (9.4-12.3); PLATELET COUNT,PLT 272 K/mm3 (150-400); RED BLOOD CELL COUNT 3.45 M/mm3 (4.10-5.30); WHITE BLOOD CELL COUNT,WBC 7.44 K/mm3 (3.9-11.3)
[2024-03-06 06:35] LABS: ANION GAP 13.9 (5-15); BUN/CREATININE RATIO 18.3 (14-18); CALCIUM 8.4 mg/dL (8.5-10.1); CREATININE 0.6 mg/dL (0.55-1.02); EST CRCL DRUG DOSING (CG) 52.82 mL/min; POTASSIUM,K 4.9 mEq/L (3.5-5.1)
[2024-03-06] MEDS ORDERED: Loperamide 2 MG Cap PO PRN (19:07)
[2024-03-06] MEDS: Sodium Chloride 1 GM Tab PO SCH (20:20)
[2024-03-06] MEDS: Loperamide 2 MG Cap PO ONE (20:23)
[2024-03-06] MEDS: Vancomycin 125 MG Cap PO SCH (23:01)
[2024-03-07 05:20] LABS: ANION GAP 15.3 (5-15); BUN/CREATININE RATIO 21.7 (14-18); CALCIUM 8.4 mg/dL (8.5-10.1); CREATININE 0.6 mg/dL (0.55-1.02); EST CRCL DRUG DOSING (CG) 52.82 mL/min; MAGNESIUM 1.6 mg/dL (1.8-2.4); POTASSIUM,K 4.3 mEq/L (3.5-5.1)
[2024-03-07] MEDS: Magnesium Sulfate/Water 2 GM in Premix Bag 1 BAG IV ONE (09:07)
[2024-03-07 13:57] VITALS: BP 125/49; PULSE 96
== END 2024-03-07 12:45 | DRG 470 ==
LOC: JD.SDS 05:50 → JD.MS 14:36 → OBSVTOIN 03-01 11:45
PROVIDERS: ADMIT Orthopaedic Surgery; ATTEND Orthopaedic Surgery
PROC: 0SRC069 Replacement of Right Knee Joint with Oxidized Zirconium on Polyethylene Synthetic Substitute, Cemented, Open Approach (ICD-10-PCS; principal; 2024-03-01)
DX: M17.11 Unilateral primary osteoarthritis, right knee (principal); N30.01 Acute cystitis with hematuria; E87.1 Hypo-osmolality and hyponatremia; I10 Essential (primary) hypertension; E78.5 Hyperlipidemia, unspecified; M81.0 Age-related osteoporosis without current pathological fracture; E78.00 Pure hypercholesterolemia, unspecified; G89.29 Other chronic pain; M54.9 Dorsalgia, unspecified; M25.552 Pain in left hip; E11.69 Type 2 diabetes mellitus with other specified complication; B96.20 Unspecified Escherichia coli [E. coli] as the cause of diseases classified elsewhere; E87.6 Hypokalemia; E11.42 Type 2 diabetes mellitus with diabetic polyneuropathy; R26.2 Difficulty in walking, not elsewhere classified; R19.7 Diarrhea, unspecified; Z90.49 Acquired absence of other specified parts of digestive tract; Z79.01 Long term (current) use of anticoagulants; Z90.710 Acquired absence of both cervix and uterus; Z96.651 Presence of right artificial knee joint; Z79.899 Other long term (current) drug therapy
CPT/HCPCS: 73560; 97110 ×3; 97161; A9270 ×6; C1713 ×2; C1776 ×4; J0171; J0665; J0690; J0697; J1100; J1596; J1885; J1921; J2250; J2270; J2405 ×2; J2704; J3010 ×3; J3370; J3490; J7120 ×3; 01402; 36415; 74019; 74019-26; 80048; 81001; 82947; 83735; 83930; 83935; 84300; 85027; 87086; 87088; 87186; 87324; 87493; 97116-GP; 97530-GP; 99100; 99232; G0378; J0360; J0696; J3475; J3480; J7030

== ENCOUNTER 2025-06-04 11:44 | Emergency (ER) | payer MEDICARE, BC ==
[2025-06-04 12:11] LABS: BASOPHILS ABSOLUTE AUTO 0.0 K/mm3 (0.0-0.2); BASOPHILS PERCENT AUTO 0.3 % (0.0-1.0); EOSINOPHILS ABSOLUTE AUTO 0.1 K/mm3 (0.0-0.4); EOSINOPHILS PERCENT AUTO 1.0 % (0.0-6.0); IMMATURE GRAN ABSOLUTE AUTO 0.10 K/mm3 (0.00-0.05); IMMATURE GRAN PERCENT AUTO 0.8 % (0.0-0.4); LYMPHOCYTES ABSOLUTE AUTO 2.0 K/mm3 (1.0-4.8); LYMPHOCYTES PERCENT AUTO 15.2 % (24.0-44.0); MEAN PLATELET VOLUME 10.7 fl (9.4-12.3); MONOCYTES ABSOLUTE AUTO 1.1 K/mm3 (0.0-0.8); MONOCYTES PERCENT AUTO 7.9 % (0.0-8.0); NEUTROPHILS ABSOLUTE AUTO 9.9 K/mm3 (1.8-7.7); NEUTROPHILS PERCENT AUTO 74.8 % (41.0-71.0); NRBC ABSOLUTE 0.00 (0.00-0.02); NRBC PERCENT 0.0 % (0.0-0.2); PLATELET COUNT,PLT 256 K/mm3 (150-400); RED BLOOD CELL COUNT 4.91 M/mm3 (4.10-5.30); WHITE BLOOD CELL COUNT,WBC 13.27 K/mm3 (3.9-11.3)
[2025-06-04 12:30] LABS: A/G RATIO 0.8 (1-2); ALANINE AMINOTRANSFERASE,ALT 41 U/L (14-59); ASPARTATE AMNIOTRANSFERASE,AST 21 U/L (15-37); BILIRUBIN TOTAL 0.4 mg/dL (0.2-1.0); BLOOD UREA NITROGEN,BUN 31 mg/dL (7-18); CARBON DIOXIDE,CO2 27 mEq/L (21-32); CHLORIDE,CL 101 mEq/L (98-107); CREATININE 0.8 mg/dL (0.55-1.02); ESTIMATED GFR 74 mL/min (>60); GLUCOSE RANDOM 103 mg/dL (70-99); POTASSIUM,K 4.2 mEq/L (3.5-5.1); PROTEIN TOTAL,TP 7.7 g/dl (6.4-8.2); SODIUM,NA 137 mEq/L (136-145); TROPONIN I HIGH SENSITIVITY 8 pg/mL (<=51)
[2025-06-04 13:57] VITALS: BP 142/67; PULSE 82
== END 2025-06-04 13:45 | disposition home or self-care (01) ==
LOC: JD.ED 11:44
DX: I49.3 Ventricular premature depolarization (principal); E78.00 Pure hypercholesterolemia, unspecified; I10 Essential (primary) hypertension; Z79.899 Other long term (current) drug therapy; Z79.01 Long term (current) use of anticoagulants
CPT/HCPCS: 36415; 71046; 71046-26; 80053; 84484; 85025; 93005; 93010; 99283; 99285